=== PATIENT | female | born 1990 | race Caucasian/White ===

== ENCOUNTER 2021-03-20 15:58 | Outpatient (REF) | payer MEDICARE, MEDICAID, SELFPAY ==
[2021-03-20 18:15] LABS: COMMENT (LAB VIEW ONLY) 14.38 mg/dL; Microalb ug/mg Crea 46.6 ug/mg Cr
== END 2021-03-20 15:59 | disposition home or self-care (01) ==
LOC: NCHCN 15:58
PROVIDERS: Visit Provider Family Medicine
DX: E10.65 Type 1 diabetes mellitus with hyperglycemia (principal)
CPT/HCPCS: 82043; 82570

== ENCOUNTER 2021-04-24 12:11 | Emergency (ER) | payer MEDICAID, SELFPAY ==
[2021-04-24 12:14] VITALS: BP 107/76; PULSE 73; RESP 14; TEMP 36.8; O2SAT 98
--- NOTE | 2021-04-24 12:19 | ED.GENADUL_ITS ---
Discharge Plan Disposition Patient Disposition: HOME Condition: Stable Discharge Details Clinical Impression: Flank pain, Bladder wall thickening Primary Care Provider: None,None ED Provider: Shyann Jackman Home Meds and New Rx's Prescriptions: New ciprofloxacin HCl 250 mg tablet 250 mg PO BID 3 Days Qty: 6 RF: 0 Continued Humulin 70/30 U-100 Insulin 100 unit/mL (70-30) Suspension 45 unit SUBCUT BID RF: 0 insulin aspart U-100 [Novolog U-100 Insulin aspart] 100 unit/mL Solution subcut TID RF: 0 Discharge Instructions Instructions: Urinary Tract Infection in Women (ED), Flank Pain (ED) Additional Instructions: Your CT scan today noted evidence of bladder wall thickening with in combination with your blood in your urine and difficulty urinating, may be indicative of a urinary tract infection. Your urine sample today however did not show evidence of infection. A prescription for an antibiotic is being sent electronically to your pharmacy. You can start this and take as directed until finished. Since you declined additional attempts at obtaining blood work today, there could be a risk or disability due to missed or incomplete diagnoses. You can take the Toradol every 6 hours as needed and directed for pain. Do not take this in combination with ibuprofen as they are similar medication. Drink plenty of fluids and get plenty of rest. Follow-up with your primary care doctor in 1 week. You have been placed on urology follow-up list. Please call the urology office of Dr. Rosales to schedule a follow-up appointment for reevaluation Return to the emergency department with any worsening or new concerning symptoms such as fever, worsening pain, persistent vomiting or any other acute concerns. Referrals: Sebas Rosales MD [ [facility] STAFF PHYSICIAN] - Discharge Data Discharge Date/Time-TO BE ENTERED AT DEPARTURE: 04/24/21 14:41 Discharge Physician: Shyann Jackman Medical Decision Making 31-year-old female with a history of hidradenitis suppurativa, kidney stones, diabetes, atrial septal defect and hysterectomy presents for left flank pain x 3 days and hematuria. Patient appears uncomfortable. Her vitals are within normal limits. She has left CVA tenderness. She does not want an IV as she states in the past health care providers have been unsuccessful with IV placement due to her multiple areas of scar tissue in her extremities. She also states she does not want IV fluids as tomorrow she will have significant lower extremity swelling. It was discussed that the standard of care would be IV placement with IV fluids but she demonstrates capacity to make decisions and declines these treatments. Will obtain screening labs, urinalysis and CT renal colic. Will give a dose of oxycodone and Zofran. Lab staff unable to obtain blood due to poor peripheral access. Patient is refusing femoral lab draw. She still appears uncomfortable. Will give another dose of oxycodone p.o. and refer for imaging. Fingerstick glucose 121. Patient refused multiple attempts at lab draw and is continuing to refuse IV access. CT scan notes: IMPRESSION: 1. No evidence of nephrolithiasis or hydronephrosis. 2. Diffuse thickening of the wall of the urinary bladder. This may be due to underdistention, but an inflammatory/infectious process cannot be excluded. Please correlate clinically. 3. Results of this exam have been verbally communicated with provider. Patient was given an additional oxycodone dose here and had some relief of pain. Discussed with patient that there is no evidence of kidney stone to correlate with her pain. There is diffuse thickening of the urinary bladder but no evidence of UTI on urinalysis, however patient does admit to hematuria and difficulty with urination, so we will send a prescription for an antibiotic to her pharmacy. She had declined Toradol IV but is agreeable to Toradol p.o. Discussed that without lab work, we may be potentially missing diagnoses or inappropriately treating her symptoms and she is aware of the risk of or disability due to missed or incomplete diagnoses. She demonstrates capacity to make decisions. Patient placed on care management list to help arrange for a follow-up appointment with urology for reevaluation. Usual and customary return precautions given prior to discharge. Medical Records Medical records reviewed: Yes I reviewed the patient's medical records. Imaging Data Radiologic Study: Radiologist's impression: CT RENAL COLIC WO CLINICAL HISTORY: L flank pain, r/o ureteral stone. TECHNIQUE: Imaging Protocol: Axial computed tomography images with coronal and sagittal reformatted images were created and reviewed. COMPARISON: No exams were available for comparison FINDINGS: ABDOMEN: Lung Bases: Normal where visualized. Liver: Normal density. No measurable mass. Gallbladder and biliary tract: The patient is status post cholecystectomy. No significant biliary ductal dilatation. Pancreas: Normal density, no abnormal calcifications or inflammatory process. Spleen: Normal. Kidneys: Normal size, contour and axis.No radiodense stones or obstructive uropathy. No masses seen. Adrenal glands: No mass is seen. Lymph nodes: Within normal limits. Abdominal Aorta: Abdominal portion non-dilated. PELVIS: Bladder:The bladder is incompletely distended. There is diffuse thickening of the wall of the urinary bladder. This may be due to underdistention. An inflammatory/infectious process cannot be excluded. Bowel: No obstruction or bowel wall thickening. Appendix is unremarkable. Peritoneal cavity: No ascites, collection or mesenteric inflammatory response. No free air. Reproductive organs: Unremarkable as visualized. Bones: Within normal limits. Soft Tissues: Within normal limits. IMPRESSION: 1. No evidence of nephrolithiasis or hydronephrosis. 2. Diffuse thickening of the wall of the urinary bladder. This may be due to underdistention, but an inflammatory/infectious process cannot be excluded. Please correlate clinically. 3. Results of this exam have been verbally communicated with provider. HPI General Mode of arrival: ambulatory . Date/Time Provider Initiated Documentation: 04/24/21 12:13 . Limitations to Documentation: no limitations . Information obtained by: patient . HPI Narrative: Patient is a 31-year-old female with a history of diabetes, kidney stones, diabetes, hysterectomy presents for left flank pain for the past 3 days. She states the pain is constant and she has been vomiting occasionally due to the pain. She last took ibuprofen 4 to 5 hours ago without relief. She was seen at [facility] for symptoms and declined Toradol and was referred here for further evaluation. Patient states she has had multiple IV attempts in the past which have been unsuccessful due to her history of multiple extremity abscess excisions which have left scar tissue. She states she does not want an IV. Patient also now admits to hematuria. She denies any fever, abdominal pain, dysuria. Related Data Home Medications Medication Instructions Recorded Confirmed Humulin 70/30 U-100 Insulin 45 unit SUBCUT BID 04/24/21 04/24/21 ciprofloxacin HCl 250 mg PO BID 3 Days #6 tab 04/24/21 insulin aspart U-100 [Novolog sliding scale dose SUBCUT TID 04/24/21 U-100 Insulin aspart] Previous Rx's Medication Instructions Recorded ciprofloxacin HCl 250 mg PO BID 3 Days #6 tab 04/24/21 Allergies Allergy/AdvReac Type Severity Reaction Status Date / Time tramadol AdvReac Intermediate Diarrhea Unverified 04/24/21 12:19 Penicillins AdvReac Unverified 04/24/21 12:19 General Stated Complaint: FlankPain VIELKA: 3 Review of Systems All systems reviewed & are unremarkable except as noted in HPI and below Constitutional Constitutional: Reports as per HPI, Denies chills and Denies fever(s) Eyes Eyes: Denies blurry vision ENT Ears, Nose, Mouth, and Throat: Denies dizziness, Denies sore throat and Denies throat swelling Cardiovascular Cardiovascular: Denies chest pain and Denies dyspnea Respiratory Respiratory: Denies cough and Denies dyspnea Gastrointestinal Gastrointestinal: Denies abdominal pain, Denies diarrhea and Denies vomiting Genitourinary Genitourinary: Reports hematuria and Denies dysuria Musculoskeletal Musculoskeletal: Reports back pain and Denies numbness Integumentary/Breasts Skin/Breast: Denies lesions and Denies rash Neurologic Neurologic: Denies dizziness, Denies localized weakness and Denies numbness Allergic/Immunologic Allergic/Immunologic: Denies throat swelling [facility] Active Problem List (Updated 04/24/21 @ 14:27 by Shyann Jackman DO) Flank pain (Acute) Bladder wall thickening (Acute) Medical History (Updated 04/24/21 @ 14:27 by Shyann Jackman DO) Atrial septal defect Diabetes Hidradenitis suppurativa Kidney stones Surgical History (Updated 04/24/21 @ 12:36 by Shyann Jackman DO) Abscess of multiple sites history of multiple incision and drainage H/O section History of hysterectomy Social History Smoking/Tobacco Use Status: Current every day Smoking risk assessment performed?: Yes Alcohol Intake: never Drug use: Daily Substance use type: marijuana Do you feel safe at home: Yes Do you feel safe in your relationship?: Yes Exam Const General: cooperative and uncomfortable Nutritional Appearance: thin Orientation: alert, awake and oriented x3 HENMT Head: normal to inspection Face and sinus: normal facial exam Eyes General: appearance normal, both eyes and all related structures EOM: EOM intact bilaterally Neck Neck: normal visual inspection and No submandibular swelling Lymphatic: no lymphadenopathy noted Chest Chest: normal inspection of the chest and no tenderness Resp Effort & Inspection: normal respiratory effort and able to speak in complete sentences Auscultation: clear to auscultation bilaterally Cardio Rate: regular rate Rhythm: regular rhythm GI Inspection: normal to inspection Palpation: soft, not firm, not rigid and nontender Auscultation: normal bowel sounds Back/Spine/Pelvis Back: CVA tenderness (left side) Skin General skin exam: no rashes or lesions noted Neuro General: patient alert, patient awake and patient oriented x3 Cognition: normal cognition Speech: speech normal Motor: muscle tone normal throughout Sensory Exam: no sensory deficits noted Extrem General: normal to inspection, full ROM, capillary refill normal, no calf tenderness bilaterally and no edema Psych Appearance: grossly normal Mental Status: mental status grossly normal Speech and Movement: speech and movement normal Affect: normal affect Course Vital Signs Vital signs: Vital Signs Temperature 98.2 F 04/24/21 12:14 Pulse 73 04/24/21 12:14 Respiratory Rate 14 04/24/21 12:14 Blood Pressure 107/76 04/24/21 12:14 Pulse Oximetry 98 04/24/21 12:14 Temperature 98.2 F 04/24/21 12:14 Temperature Source Skin 04/24/21 12:14 Pulse 73 04/24/21 12:14 Respiratory Rate 14 04/24/21 12:14 Blood Pressure 107/76 04/24/21 12:14 Blood Pressure Position Sitting 04/24/21 12:14 Pulse Oximetry 98 04/24/21 12:14 Oxygen Delivery Method Room Air 04/24/21 12:14 Oxygen Flow Rate 0 04/24/21 12:14 Pain Level 10 04/24/21 12:14 Comment 04/24/21 12:14
--- NOTE | 2021-04-24 12:30 | DI.CT_ITS ---
Exam(s) CT RENAL COLIC WO EXAM: CT RENAL COLIC WO CLINICAL HISTORY: L flank pain, r/o ureteral stone. TECHNIQUE: Imaging Protocol: Axial computed tomography images with coronal and sagittal reformatted images were created and reviewed. COMPARISON: No exams were available for comparison FINDINGS: ABDOMEN: Lung Bases: Normal where visualized. Liver: Normal density. No measurable mass. Gallbladder and biliary tract: The patient is status post cholecystectomy. No significant biliary du ctal dilatation. Pancreas: Normal density, no abnormal calcifications or inflammatory process. Spleen: Normal. Kidneys: Normal size, contour and axis.No radiodense stones or obstructive uropathy. No masses seen. Adrenal glands: No mass is seen. Lymph nodes: Within normal limits. Abdominal Aorta: Abdominal portion non-dilated. PELVIS: Bladder:The bladder is incompletely distended. There is diffuse thickening of the wall of the urinar y bladder. This may be due to underdistention. An inflammatory/infectious process cannot be exclude d. Bowel: No obstruction or bowel wall thickening. Appendix is unremarkable. Peritoneal cavity: No ascites, collection or mesenteric inflammatory response. No free air. Reproductive organs: Unremarkable as visualized. Bones: Within normal limits. Soft Tissues: Within normal limits. IMPRESSION: 1. No evidence of nephrolithiasis or hydronephrosis. 2. Diffuse thickening of the wall of the urinary bladder. This may be due to underdistention, but an inflammatory/infectious process cannot be excluded. Please correlate clinically. 3. Results of this exam have been verbally communicated with provider. RADIATION DOSE DELIVERED: 434.32mGy.cm Total DLP DATA REPOSITORY: All CT scans at this facility are submitted to the National Radiology Data Registry (NRDR) Dose Index Registry (DIR) with the [employer] (A[employer]). RADIATION OPTIMIZATION: All CT scans at this facility use at least one of these dose optimization te chniques: automated exposure control; mA and/or kV adjustment per patient size (includes targeted exa ms where dose is matched to clinical indication); or iterative reconstruction.
[2021-04-24] MEDS: oxyCODONE 5 MG TAB PO ×2 (12:39→13:32)
[2021-04-24] MEDS: Ondansetron O.D.T. 4 MG TABEF PO (12:40)
[2021-04-24 12:53] LABS: Bilirubin Small (Negative); Blood Negative (Negative); Clarity Clear (Clear); Glucose 500 mg/dL (Negative); Ketones Trace mg/dL (Negative); Leukocyte Esterase Negative (Negative); Nitrite Negative (Negative); Specific Gravity >= 1.030 (1.005-1.025); Urobilinogen 0.2 EU/dL (Up TO 0.2); pH 5.5 (5-8)
[2021-04-24 13:00] LABS: Bacteria Rare HPF (Negative); C & S Indicated? No/Sq. Contamination; Casts 3-5 Hyaline LPF (Negative); Crystals Negative HPF (Negative); Epithelial Cells Moderate HPF (Negative); Mucus Moderate (Negative); RBC Negative HPF (0-2); WBC Negative HPF (0-5)
[2021-04-24] MEDS: Ketorolac 10 MG TAB PO (14:23)
[2021-04-24] MEDS: Ketorolac 10 MG TAB 40 MG PO (14:27)
--- NOTE | 2021-04-24 14:33 | NUR.NOTE ---
Nursing Note: Referral faxed to [facility] Urology for flank pain, bladder wall thickening within 2 weeks.Merna Santiago
== END 2021-04-24 14:41 | disposition home or self-care (01) ==
PROVIDERS: Emergency Provider Physician Assistant
DX: R10.9 Unspecified abdominal pain (principal); N32.89 Other specified disorders of bladder; Z53.29 Procedure and treatment not carried out because of patient's decision for other reasons; E11.9 Type 2 diabetes mellitus without complications
CPT/HCPCS: 36416; 80053; 82962; 83690; 99284; 74176; 81003; 81015; 85025; 99283

== ENCOUNTER 2021-05-01 17:01 | Emergency (ER) | payer MEDICAID, SELFPAY ==
[2021-05-01 17:23] VITALS: BP 110/76; PULSE 73; RESP 14; TEMP 37.2; O2SAT 97
--- NOTE | 2021-05-01 17:38 | W.ED.GENAD ---
Discharge Plan Disposition Patient Disposition: HOME Condition: Stable Discharge Details Clinical Impression: Abdominal pain, Hyperglycemia Primary Care Provider: None,None ED Provider: Oni Elizalde Home Meds and New Rx's Prescriptions: Continued Humulin 70/30 U-100 Insulin 100 unit/mL (70-30) Suspension 45 unit SUBCUT BID RF: 0 insulin aspart U-100 [Novolog U-100 Insulin aspart] 100 unit/mL Solution subcut TID RF: 0 Discharge Instructions Instructions: Abdominal Pain (ED), Diabetic Hyperglycemia (ED) Additional Instructions: At this time your laboratory values reveal hyperglycemia, your glucose is 457, please watch this carefully and continue taking your insulin as directed. At this time your urinalysis is still pending, I cannot speak to whether you have any blood in your urine or potential infection. I have strongly recommended that you let me contact anesthesia to obtain IV access, give you IV fluids and medication and obtain a CT of your abdomen and pelvis with IV contrast which is different than your recent visit on April 25. You have declined all of this. Because of this, I do not have a clear source of your discomfort this evening which means you could continue to deteriorate eventually leading to long-term impairment, disability, , etc. Please watch for new or worsening symptoms and return to the ER for any concerns. Otherwise contact your primary care provider tomorrow to discuss your ongoing abdominal pain and need for outpatient reevaluation. Discharge Data Discharge Date/Time-TO BE ENTERED AT DEPARTURE: 05/01/21 19:21 Medical Decision Making 31-year-old female, past medical history of diabetes, hysterectomy, cholecystectomy, presenting to the ER for 7-day history of abdominal pain that wraps around her right flank into her back. She was seen here on April 25, refused any additional attempts at labs or IV and subsequently was discharged. Today she appears well, nontoxic, hemodynamically stable. Diffuse abdominal discomfort but certainly nonsurgical. Patient reports history of cholecystectomy and hysterectomy. She states this feels different than her previous kidney stone. At her most recent visit she did have a CT without contrast, substantial bladder thickening, placed on antibiotics. She denies any dysuria whatsoever. Patient is asking for oral pain medication. Is hesitant to allow a blood draw attempt or IV attempt. I explained to her that with her ongoing discomfort my concern is to simply blindly treat her discomfort without any obvious etiology. I would like to obtain IV access, give IV fluid given her nausea, vomiting, diarrhea, obtain routine laboratory values and potentially a CT of her abdomen pelvis with IV contrast for additional information. Patient states that she does not need IV fluids. She is willing to allow an IV attempt only with ultrasound. Straight stick blood draw obtained, IV attempted but unsuccessful. Patient is requesting medication. Patient offered oral Toradol and Tylenol. Patient declines both of these medications. Patient will allow an ultrasound attempt, another attempt was made with ultrasound and unsuccessful. We discussed calling an anesthesia to see if they could obtain act but patient refuses this. She would like to wait for her blood work to come back before she makes any further decisions. Is requesting pain medication once again. Discussed GI cocktail and Bentyl, patient once again refuses these medications. No vomiting or episode of diarrhea while observed here in the ER. Laboratory values reveal a white blood cell count of 5.00 hemoglobin of 5.29 hematocrit 47.5 platelet count 132. Sodium 136 potassium 3.6 chloride 97 carbon dioxide 33.3 anion gap 5.7 creatinine 0.7 with a GFR greater than 60. Glucose 457. Urinalysis without evidence of infection. We once again discussed the limited work-up given lack of IV access and CT imaging. We discussed her glucose. No elevated anion gap, highly unlikely DKA. Patient states that she can check her levels at home and can take her sliding scale insulin as she needs to. Does not want any insulin here now patient states if I am not willing to give her additional pain medication and she would like to be discharged and I'll just got to another [facility]. I explained to the patient that her hyperglycemia needs to be treated, she would benefit from IV hydration, and I do believe that if her symptoms are persistent with obtaining advanced imaging with IV contrast may also give additional information to her symptoms. She refuses all of this and is requesting discharge. Subsequently she requests her oral dose of Toradol that was offered earlier. She is requesting discharge now, she is already called for a ride home. She does understand that her work-up here in the ER was limited, not complete, and therefore I cannot safely say that her symptoms will not worsen, change, or evolve, leading to permanent disability or . Strict discharge and return precautions were provided This documentation was generated using [employer] system, please disregard any oddities of phrase or misspellings. Toxicology is positive for methadone and THC. Medical Records Medical records reviewed: Yes I reviewed the patient's medical records. Lab Data Lab results reviewed: Yes I reviewed the patient's lab results. Labs: Laboratory Tests Range/Units 05/01/21 05/01/21 05/01/21 17:42 17:42 18:45 WBC (4.4-10.8) 10^3/uL 5.00 RBC (3.93-5.22) 10^6/uL 5.29 H Hgb (11.2-15.7) g/dL 15.7 Hct (36.0-46.0) % 47.5 H MCV (80-95) fL 89.8 MCH (27.0-33.0) pg 29.7 MCHC (32.0-36.0) % 33.1 RDW (11.7-14.6) % 12.1 Plt Count (130-400) 10^3/uL 132 MPV (8.0-11.0) fL 11.8 H Immature Gran % 0.4 Neutrophils % 60.4 Lymphocytes % 32.2 Monocytes % 5.8 Eosinophils % 0.6 Basophils % 0.6 Nucleated RBC % % 0 Absolute Neutrophils (1.2-6.7) 10^3/uL 3.02 Absolute Lymphocytes (1.2-3.4) 10^3/uL 1.61 Absolute Monocytes (0.1-0.8) 10^3/uL 0.29 Absolute Eosinophils (0.0-0.7) 10^3/uL 0.03 Absolute Basophils (0.0-0.2) 10^3/uL 0.03 RBC Morphology Normal Sodium (136-145) mmol/L 136 Potassium (3.5-5.1) mmol/L 3.6 Chloride (98-107) mmol/L 97 L Carbon Dioxide (21.0-32.0) mmol/L 33.3 H Anion Gap (3-11) mmol/L 5.7 BUN (7-18) mg/dL 8 Creatinine (0.55-1.02) mg/dL 0.7 Estimated GFR/1.73 m2 (mL/min/1.73m2) >= 60.00 Glucose (74-106) mg/dL 457 H Calcium (8.5-10.1) mg/dL 9.3 Total Bilirubin (0.2-1.0) mg/dL 1.1 H AST (15-37) U/L 26 ALT (14-59) U/L 29 Alkaline Phosphatase (46-116) U/L 90 Total Protein (6.4-8.2) g/dL 8.2 Albumin (3.4-5.0) g/dL 3.8 Lipase (73-393) U/L 28 Urine Color (Yellow) Yellow Urine Clarity (Clear) Clear Urine pH (5-8) 6.0 Ur Specific Turrell (1.005-1.025) 1.010 Urine Protein (Negative) mg/dL Negative Urine Ketones (Negative) mg/dL 15 H Urine Blood (Negative) Negative Urine Nitrite (Negative) Negative Urine Bilirubin (Negative) Negative Urine Urobilinogen (Up TO 0.2) EU/dL 0.2 Ur Leukocyte Esterase (Negative) Negative Urine Glucose (Negative) mg/dL >=1000 H Urine Opiates Screen (Negative) Urine Methadone Screen (Negative) Ur Barbiturates Screen (Negative) Ur Tricyclics Screen (Negative) Ur Amphetamines Screen (Negative) U Benzodiazepines Scrn (Negative) Urine Cocaine Screen (Negative) Ur THC Screen (Negative) Range/Units 05/01/21 18:46 WBC (4.4-10.8) 10^3/uL RBC (3.93-5.22) 10^6/uL Hgb (11.2-15.7) g/dL Hct (36.0-46.0) % MCV (80-95) fL MCH (27.0-33.0) pg MCHC (32.0-36.0) % RDW (11.7-14.6) % Plt Count (130-400) 10^3/uL MPV (8.0-11.0) fL Immature Gran % Neutrophils % Lymphocytes % Monocytes % Eosinophils % Basophils % Nucleated RBC % % Absolute Neutrophils (1.2-6.7) 10^3/uL Absolute Lymphocytes (1.2-3.4) 10^3/uL Absolute Monocytes (0.1-0.8) 10^3/uL Absolute Eosinophils (0.0-0.7) 10^3/uL Absolute Basophils (0.0-0.2) 10^3/uL RBC Morphology Sodium (136-145) mmol/L Potassium (3.5-5.1) mmol/L Chloride (98-107) mmol/L Carbon Dioxide (21.0-32.0) mmol/L Anion Gap (3-11) mmol/L BUN (7-18) mg/dL Creatinine (0.55-1.02) mg/dL Estimated GFR/1.73 m2 (mL/min/1.73m2) Glucose (74-106) mg/dL Calcium (8.5-10.1) mg/dL Total Bilirubin (0.2-1.0) mg/dL AST (15-37) U/L ALT (14-59) U/L Alkaline Phosphatase (46-116) U/L Total Protein (6.4-8.2) g/dL Albumin (3.4-5.0) g/dL Lipase (73-393) U/L Urine Color (Yellow) Urine Clarity (Clear) Urine pH (5-8) Ur Specific Turrell (1.005-1.025) Urine Protein (Negative) mg/dL Urine Ketones (Negative) mg/dL Urine Blood (Negative) Urine Nitrite (Negative) Urine Bilirubin (Negative) Urine Urobilinogen (Up TO 0.2) EU/dL Ur Leukocyte Esterase (Negative) Urine Glucose (Negative) mg/dL Urine Opiates Screen (Negative) Negative Urine Methadone Screen (Negative) Positive A Ur Barbiturates Screen (Negative) Negative Ur Tricyclics Screen (Negative) Negative Ur Amphetamines Screen (Negative) Negative U Benzodiazepines Scrn (Negative) Negative Urine Cocaine Screen (Negative) Negative Ur THC Screen (Negative) Positive A HPI General Mode of arrival: ambulatory. Date/Time Provider Initiated Documentation: 05/01/21 17:03. Limitations to Documentation: no limitations. Information obtained by: patient. HPI Narrative: This is a 31-year-old female, reports past medical history of insulin dependent diabetes, renal stone, hysterectomy, cholecystectomy, presenting to the ER today reporting generalized abdominal pain worse in the middle that wraps around her right flank into her back. She states that nothing makes this pain worse or better. Reports it is constant but moderate to severe. She tells me she was seen in the ER on April 25 for the same thing, subsequently discharged, has not made an appointment with urology like instructed. Patient denies any alcohol use or drug use. Patient states that over the last several days she has developed generalized weakness, nausea, vomiting, and now just over the past day or so some diarrhea. She denies taking any medications for the symptoms. She has not contacted her primary care provider since this began on April 25. Patient states that this pain feels different than her previous kidney stones, never had pain like this before. She denies recent travel or sick contacts. Denies recent illness or trauma. Reports the pain is sharp and achy in nature. She denies fever, headache, chest pain, shortness of breath, cough, dysuria, hematuria, vaginal bleeding or discharge, skin rash. Related Data Home Medications Medication Instructions Recorded Confirmed Humulin 70/30 U-100 Insulin 45 unit SUBCUT BID 04/24/21 05/01/21 insulin aspart U-100 [Novolog sliding scale dose SUBCUT TID 04/24/21 U-100 Insulin aspart] Allergies Allergy/AdvReac Type Severity Reaction Status Date / Time tramadol AdvReac Intermediate Diarrhea Unverified 05/01/21 17:25 Penicillins AdvReac Unverified 05/01/21 17:25 General Stated Complaint: Abd Prob VIELKA: 2 Review of Systems Constitutional Constitutional: Denies fever(s) and Denies headache(s) ENT Ears, Nose, Mouth, and Throat: Denies headache(s) and Denies neck pain Cardiovascular Cardiovascular: Denies chest pain and Denies dyspnea Respiratory Respiratory: Denies cough and Denies dyspnea Gastrointestinal Gastrointestinal: Reports abdominal pain, Reports diarrhea, Reports nausea and Reports vomiting Genitourinary Genitourinary: Denies abnormal vaginal bleeding and Denies vaginal discharge Musculoskeletal Musculoskeletal: Reports back pain and Denies neck pain Integumentary/Breasts Skin/Breast: Denies rash Neurologic Neurologic: Denies headache(s) [facility] Active Problem List Flank pain (Acute) Bladder wall thickening (Acute) Abdominal pain (Acute) Hyperglycemia (Acute) Medical History Atrial septal defect Diabetes Hidradenitis suppurativa Kidney stones Surgical History Abscess of multiple sites history of multiple incision and drainage H/O section History of hysterectomy Social History Smoking/Tobacco Use Status: Current every day Smoking risk assessment performed?: Yes Alcohol Intake: never Drug use: Daily Substance use type: marijuana Do you feel safe at home: Yes Do you feel safe in your relationship?: Yes Exam Const General: cooperative, healthy appearing, comfortable and no acute distress Orientation: alert and awake [facility] Head: normal to inspection, normocephalic and atraumatic Face and sinus: normal facial exam Mouth: moist mucous membranes Eyes General: appearance normal, both eyes and all related structures Conjunctivae: conjunctivae normal Neck Neck: normal visual inspection, trachea midline and supple Resp Effort & Inspection: normal respiratory effort and able to speak in complete sentences Auscultation: clear to auscultation bilaterally Cardio Rate: regular rate Rhythm: regular rhythm GI Inspection: normal to inspection Palpation: soft, not firm, no guarding, no pulsatile masses and tender (Diffuse, mild) not at McBurney's point, Vail's sign negative and with no rebound tenderness Auscultation: normal bowel sounds Back/Spine/Pelvis Back: no CVA tenderness and No back tenderness Skin General skin exam: no rashes or lesions noted Neuro General: patient alert, patient awake, moves all extremities and no focal motor deficits Cognition: normal cognition Speech: speech normal Gait: normal gait Sensory Exam: no sensory deficits noted Extrem General: normal to inspection and full ROM Psych Appearance: grossly normal Mental Status: mental status grossly normal Course Vital Signs Vital signs: Vital Signs Temperature 37.2 C 05/01/21 17:23 Pulse 73 05/01/21 17:23 Respiratory Rate 14 05/01/21 17:23 Blood Pressure 110/76 05/01/21 17:23 Pulse Oximetry 97 05/01/21 17:23 Temperature 37.2 C 05/01/21 17:23 Temperature Source Skin 05/01/21 17:23 Pulse 73 05/01/21 17:23 Respiratory Rate 14 05/01/21 17:23 Respiratory Effort Non-Labored 05/01/21 17:26 Blood Pressure 110/76 05/01/21 17:23 Blood Pressure Position Supine 05/01/21 17:23 Pulse Oximetry 97 05/01/21 17:23 Oxygen Delivery Method Room Air 05/01/21 17:23 Oxygen Flow Rate 0 05/01/21 17:23 Pain Level 10 05/01/21 17:26
[2021-05-01 18:25] LABS: Abs Immature Grans 0.02 10^3/uL (0.0-0.06); Absolute Basophil Count 0.03 10^3/uL (0.0-0.2); Absolute Eosinophil Count 0.03 10^3/uL (0.0-0.7); Absolute Lymphocyte Count 1.61 10^3/uL (1.2-3.4); Absolute Monocyte Count 0.29 10^3/uL (0.1-0.8); Absolute Neutrophil Count 3.02 10^3/uL (1.2-6.7); Basophils % 0.6; Eosinophils % 0.6; HCT 47.5 % (36.0-46.0); HGB 15.7 g/dL (11.2-15.7); Immature Grans % 0.4; Lymphocytes % 32.2; MCH 29.7 pg (27.0-33.0); MCHC 33.1 % (32.0-36.0); MCV 89.8 fL (80-95); MPV 11.8 fL (8.0-11.0); Monocytes % 5.8; Neutrophils % 60.4; Nucleated RBC 0 %; Platelet Count 132 10^3/uL (130-400); RBC 5.29 10^6/uL (3.93-5.22); RDW 12.1 % (11.7-14.6); RDW-SD 39.9 fL
[2021-05-01 18:40] LABS: ALT 29 U/L (14-59); AST 26 U/L (15-37); Albumin 3.8 g/dL (3.4-5.0); Alkaline Phosphatase 90 U/L (46-116); Anion Gap 5.7 mmol/L (3-11); BUN 8 mg/dL (7-18); Bilirubin, Total 1.1 mg/dL (0.2-1.0); CO2 33.3 mmol/L (21.0-32.0); CREATININE 0.7 mg/dL (0.55-1.02); Calcium 9.3 mg/dL (8.5-10.1); Chloride 97 mmol/L (98-107); Glucose 457 mg/dL (74-106); Lipase 28 U/L (73-393); Potassium 3.6 mmol/L (3.5-5.1); Sodium 136 mmol/L (136-145); Total Protein 8.2 g/dL (6.4-8.2)
[2021-05-01 18:52] LABS: Diff Comment PLT Morph Reviewed; RBC Morphology Normal
[2021-05-01 19:03] LABS: Bilirubin Negative (Negative); Blood Negative (Negative); Clarity Clear (Clear); Glucose >=1000 mg/dL (Negative); Ketones 15 mg/dL (Negative); Leukocyte Esterase Negative (Negative); Nitrite Negative (Negative); Urobilinogen 0.2 EU/dL (Up TO 0.2)
[2021-05-01] MEDS: Ketorolac 10 MG TAB PO (19:13)
[2021-05-01 19:14] VITALS: BP 106/77; PULSE 68; O2SAT 100
[2021-05-01 19:16] LABS: *AMPHETAMINES SCREEN URINE Negative (Negative); *BARBITURATES SCREEN URINE Negative (Negative); *BENZODIAZEPINES SCREEN URINE Negative (Negative); Cannabinoids THC Positive (Negative); Cocaine Screen,Urine Negative (Negative); METHADONE URINE SCREEN Positive (Negative); OPIATES URINE SCREEN Negative (Negative)
[2021-05-01 19:17] LABS: Tricyclic Antidepressants Negative (Negative)
== END 2021-05-01 19:21 | disposition home or self-care (01) ==
PROVIDERS: Emergency Provider Physician Assistant
DX: R10.9 Unspecified abdominal pain (principal); E11.65 Type 2 diabetes mellitus with hyperglycemia
CPT/HCPCS: 36415; 80053; 80307; 83690; 99283; 81003; 85025; 99282

== ENCOUNTER 2021-10-08 19:06 | Inpatient (IN) | payer MEDICAID, SELFPAY ==
[2021-10-08] VITALS (77 sets, daily range): BP systolic 106–116; BP diastolic 72–79; PULSE 71–85; RESP 14–22; TEMP 36.7–37.3; O2SAT 97–100
--- NOTE | 2021-10-08 19:25 | ED.GENADUL_ITS ---
Discharge Plan Disposition Patient Disposition: [facility] INPATIENT Condition: Improving Discharge Details Chief Complaint: GenMedical Clinical Impression: DKA (diabetic ketoacidosis), Acute opioid withdrawal, Acute dehydration Primary Care Provider: None,None ED Provider: Victor Manuel Ayala Home Meds and New Rx's Prescriptions: No Action Humulin 70/30 U-100 Insulin 100 unit/mL (70-30) Suspension 45 unit SUBCUT BID insulin aspart U-100 [Novolog U-100 Insulin aspart] 100 unit/mL Solution subcut TID Medical Decision Making 31-year-old female history of diabetes, opiate abuse, currently enrolled in the methadone program, endorses missing her last 3 doses of methadone as her sister recently , also endorsed taking her insulin today and not eating much, generalized fatigue nausea vomiting abdominal pain diarrhea, appears mild to moderately uncomfortable, frail cachectic dry appearing, no active vomiting abdomen soft nontender nondistended, alert oriented, fingerstick greater than 400, concern for methadone withdrawal versus DKA versus dehydration versus lecture abnormality versus gastroenteritis versus viral syndrome. Patient endorses that she takes 90 mg of methadone per day. Will dose 30 mg as I am unable to verify this dose. Will provide fluids antiemetics, will assess labs VBG, flu and COVID swab, close reassessment disposition pending results and reassessment 20: 43 evidence of DKA. Acidosis anion gap ketones in the urine hyperglycemia, fluids and maintenance fluids initiated, started on insulin drip, methadone 30 mg given patient resting much more comfortably. Will be admitted to the ICU for continued insulin therapy hydration close monitoring of metabolic status. HPI General Date/Time Provider Initiated Documentation: 10/08/21 19:07 . HPI Narrative: 31-year-old female history of opiate abuse, on methadone program, presents with generalized fatigue and nausea vomiting and diarrhea as well as body aches today, endorses missing her last several days of methadone as her sister , also endorses taking her insulin today and not eating much. Related Data Home Medications Medication Instructions Recorded Confirmed insulin aspart U-100 100 unit/mL sliding scale dose subcut TID 04/24/21 subcutaneous solution (Novolog U-100 Insulin aspart) insulin human U-100 NPH-regulr 45 unit subcut BID 04/24/21 05/01/21 70-30 mix 100 unit/mL subcutaneous susp (Humulin 70/30 U-100 Insulin) Allergies Allergy/AdvReac Type Severity Reaction Status Date / Time tramadol AdvReac Intermediate Diarrhea Unverified 05/01/21 17:25 Penicillins AdvReac Unverified 05/01/21 17:25 General Stated Complaint: GenMedical VIELKA: 2 Review of Systems Narrative: Review of Systems Constitutional: Fatigue Eyes: negative ENT: negative Cardiovascular: negative Respiratory: negative Gastrointestinal: Nausea vomiting diarrhea : negative Musculoskeletal: negative Skin: negative Neurologic: negative Psych: negative PFSH All Active Problems (Updated 10/08/21 @ 20:44 by Victor Manuel Ayala MD) Flank pain (Acute) Bladder wall thickening (Acute) Abdominal pain (Acute) Hyperglycemia (Acute) DKA (diabetic ketoacidosis) (Acute) Acute opioid withdrawal (Acute) Acute dehydration (Acute) Active Problem List Flank pain (Acute) Bladder wall thickening (Acute) Abdominal pain (Acute) Hyperglycemia (Acute) Medical History Atrial septal defect Diabetes Hidradenitis suppurativa Kidney stones Surgical History Abscess of multiple sites history of multiple incision and drainage H/O section History of hysterectomy Social History Smoking/Tobacco Use Status: Current every day Smoking risk assessment performed?: Yes Alcohol Intake: never Drug use: Daily Substance use type: marijuana and opiates Do you feel safe at home: Yes Do you feel safe in your relationship?: Yes Exam Narrative Exam Narrative: Physical Examination General: Fatigue, moderately uncomfortable appears cachectic and frail HEENT: normocephalic, atraumatic; PERRL, EOM intact, conjunctiva normal; no nasal discharge; dry oral mucosa Neck: supple, trachea midline; full ROM Chest: normal to inspection Respiratory: normal respiratory effort, speaking in full sentences, clear to auscultation, no wheezing, rales or rhonchi Cardiac: regular rate, regular rhythm, S1S2 intact, no murmurs rubs or gallops GI: abdomen soft, non-tender, non-distended; no palpable mass or hepatosplenomegaly Skin: no lesions, rashes or trauma appreciated Neuro: AAOx3, normal speech, moving all extremities Psych: Appropriate mood and affect Course Vital Signs Vital signs: Vital Signs Temperature 36.7 C 10/08/21 19:08 Pulse 71 10/08/21 19:08 Respiratory Rate 14 10/08/21 19:08 Blood Pressure 109/73 10/08/21 19:08 Pulse Oximetry 100 10/08/21 19:08 Temperature 36.7 C 10/08/21 19:08 Temperature Source Temporal Artery Scan 10/08/21 19:08 Pulse 71 10/08/21 19:08 Respiratory Rate 14 10/08/21 19:13 Respiratory Effort Non-Labored 10/08/21 19:13 Respiratory Depth Shallow 10/08/21 19:13 Respiratory Pattern Normal 10/08/21 19:13 Blood Pressure 109/73 10/08/21 19:08 Blood Pressure Position Supine 10/08/21 19:08 Pulse Oximetry 100 10/08/21 19:08 Oxygen Delivery Method Room Air 10/08/21 19:08 Oxygen Flow Rate 0 10/08/21 19:08 Pain Level 10 10/08/21 19:08
[2021-10-08 19:34] LABS: HCO3 (Venous) 7 mmol/L (23-28); O2 Sat (Venous) 62 %; TCO2 (Venous) 7 mmol/L (24-29); pCO2 (Venous) 23 mmHg (41-51); pO2 (Venous) 33 mmHg
[2021-10-08 19:35] LABS: Absolute Basophil Count 0.14 10^3/uL (0.0-0.2); Absolute Eosinophil Count 0.01 10^3/uL (0.0-0.7); Absolute Lymphocyte Count 1.83 10^3/uL (1.2-3.4); Absolute Monocyte Count 0.21 10^3/uL (0.1-0.8); Absolute Neutrophil Count 8.39 10^3/uL (1.2-6.7); Basophils % 1.3; Eosinophils % 0.1; HCT 47.8 % (36.0-46.0); HGB 15.1 g/dL (11.2-15.7); Immature Grans % 3.6; Lymphocytes % 16.7; MCH 28.9 pg (27.0-33.0); MCHC 31.6 % (32.0-36.0); MCV 92 fL (80-95); MPV 10.1 fL (8.0-11.0); Monocytes % 1.9; Neutrophils % 76.4; Platelet Count 343 10^3/uL (130-400); RBC 5.22 10^6/uL (3.93-5.22); RDW 12.5 % (11.7-14.6); WBC 10.98 10^3/uL (4.4-10.8)
[2021-10-08 19:36] LABS: pH (Venous) 7.09 (7.31-7.41)
[2021-10-08] MEDS: Ondansetron 4 MG/2 ML VIAL IVP (19:44)
[2021-10-08] MEDS: Normal Saline 1,000 ML 1000 ML IV (19:44)
[2021-10-08 19:50] LABS: ALT 35 U/L (14-59); AST 15 U/L (15-37); Albumin 3.6 g/dL (3.4-5.0); Alkaline Phosphatase 138 U/L (46-116); Anion Gap 25.4 mmol/L (3-11); BUN 9 mg/dL (7-18); Bilirubin, Total 0.8 mg/dL (0.2-1.0); CO2 7.6 mmol/L (21.0-32.0); CREATININE 0.9 mg/dL (0.55-1.02); Calcium 8.7 mg/dL (8.5-10.1); Chloride 99 mmol/L (98-107); Glucose 433 mg/dL (74-106); Potassium 4.3 mmol/L (3.5-5.1); Sodium 132 mmol/L (136-145); Total Protein 8.8 g/dL (6.4-8.2)
--- NOTE | 2021-10-08 19:57 | NUR.NOTE ---
pt refused the covid flu testNursing Note:
[2021-10-08] MEDS: Methadone 10 MG TAB 30 MG PO (20:01)
[2021-10-08 20:24] LABS: Bilirubin Negative (Negative); Blood Trace-lysed (Negative); Clarity Clear (Clear); Glucose 500 mg/dL (Negative); Ketones >=160 mg/dL (Negative); Leukocyte Esterase Negative (Negative); Nitrite Negative (Negative); Specific Gravity >= 1.030 (1.005-1.025); Urobilinogen 0.2 EU/dL (Up TO 0.2); pH 5.5 (5-8)
[2021-10-08 20:32] LABS: Bacteria Moderate HPF (Negative); C & S Indicated? Yes; Crystals Negative HPF (Negative); Epithelial Cells Few HPF (Negative); Mucus Negative (Negative); RBC 0-2 HPF (0-2)
--- NOTE | 2021-10-08 20:32 | NUR.NOTE ---
contacted patients mother.Nursing Note:
--- NOTE | 2021-10-08 22:11 | NUR.NOTE ---
Report given to Sofi RN, ICU Nursing Note:
[2021-10-08] MEDS: INSULIN REGULAR IN 0.9 % NACL 100 UNIT/100 ML BAG 5.7 UNIT IV (23:07)
--- NOTE | 2021-10-08 23:34 | W.PM.HP.N ---
Date of service: 10/08/21 Time of Service: 22:35 Assessment and Plan Assessment and plan (1) DKA (diabetic ketoacidosis): Status: Resolved Assessment and plan: DKA protocol; insulin drip initiated. Lantus 15 units SQ administered. She c/o pain at the IV site and she stated it had infiltrated. It apparently had not infiltrated; could be flushed. Becuase of her c/o discomfort another IV initiated and she complained that it had infiltrated and was painful. She would not allow nursing to flush it. While the insulin drip was not running, her glucose reading was 245. While insulin drip not running, she was given 5 units insulin. She will need glucose in her system so nursing is encouraging juice or soda. Zofran given for nausea. 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 (2) Acute opioid withdrawal: Status: Acute Assessment and plan: Will need to verify her methadone dose with her provider. She appeared to be in withdrawal still after the 30 methadone given in the ED. She endorses taking 90 a day. Though this will need verification, given her clinical signs/sxs of withdrawal, she was given another 60 of methadone. (3) History of opioid abuse: Status: Acute Assessment and plan: See above. History of Present Illness History of Present Illness Chief Complaint: Nausea, vomiting, weakness Narrative: This is a 31 yo female with a PMH of DM1, opiate abuse currently on methadone. She presented c/o weakness, N/V. She endorsed missing her last 3 doses of methadone d/t her sisters . She stated she did take her insulin on the day of admission, but hasn't eaten much. In the ED her glucose fingerstick was 400. She c/o generalized pain/aches. No F/C. + nausea/abd pain. Lab showed a WBC count of 10.98. VBG pH of 7.09. Na 132. K 4.3. CO2 7.6 with an anion gap of 25.4. BUN 9. Creatinine 0.9. LFTs and bilirubin normal. Urine was concentrated, +ketones, WBC 10-20, Mod bacteria. Glucose 500. She was given a 1000 ml IV NS bolus and an insulin drip initiated. A 20 meq IV dose of K also administered. She was given methadone 30mg po. She stated her dose is 90, but this has not been verified. Review of Systems All systems reviewed & are unremarkable except as noted in HPI and below PFSH All Active Problems (Updated 11/12/21 @ 00:04 by KEYUR NICHOLE) Type 1 diabetes mellitus (Acute) Depression (Chronic) History of opioid abuse (Acute) Flank pain (Acute) Bladder wall thickening (Acute) Abdominal pain (Acute) Hyperglycemia (Acute) Acute opioid withdrawal (Acute) Medical History Atrial septal defect Diabetes Hidradenitis suppurativa Kidney stones Surgical History Abscess of multiple sites history of multiple incision and drainage H/O section History of hysterectomy Social History Smoking/Tobacco Use Status: Current every day Smoking risk assessment performed?: Yes Alcohol Intake: never Drug use: Current Sobriety Details: methadone Do you feel safe at home: Yes Do you feel safe in your relationship?: Yes Meds Allergies and Home Medications Allergies Allergy/AdvReac Type Severity Reaction Status Date / Time tramadol AdvReac Intermediate Diarrhea Unverified 10/13/21 10:44 Penicillins AdvReac Unverified 10/13/21 10:44 Home Medications Medication Instructions Recorded Confirmed Type flash glucose sensor (FreeStyle #1 ea 10/11/21 Rx Kassi 14 Day Sensor kit) insulin aspart U-100 100 unit/mL 5 unit (0.05 mL) subcut AC #15 mL 10/11/21 10/13/21 Rx (3 mL) subcutaneous pen (Novolog Flexpen U-100 Insulin aspart) insulin glargine 100 unit/mL (3 20 unit (0.2 mL) subcut BID #15 mL 10/11/21 10/13/21 Rx mL) subcutaneous pen methadone 10 mg/mL oral 60 mg (6 mL) PO DAILY #0 mL 10/11/21 10/13/21 Rx concentrate (Methadone Intensol) metoclopramide HCl 10 mg tablet 10 mg PO QAC #21 tabs 10/11/21 10/13/21 Rx (Reglan) pantoprazole 40 mg tablet,delayed 40 mg PO DAILY@0730 #30 tabs 10/11/21 10/13/21 Rx release paroxetine HCl 10 mg tablet 10 mg PO DAILY #30 tabs 10/11/21 10/13/21 Rx trimethobenzamide 300 mg capsule 300 mg PO Q8H PRN #30 caps 10/11/21 10/13/21 Rx Exam Narrative Exam Narrative: Lying on her right side, cachectic appearing. Const General: frail appearing, ill appearing and other (uncomfortable and restless) Nutritional Appearance: underweight Orientation: awake, oriented to person and oriented to place [place] Head: atraumatic Ears: hearing grossly normal bilaterally Teeth and gingiva: poor dentition (broken and missing teeth. Caries noted. ) Eyes General: appearance normal, both eyes and all related structures Sclera: sclerae normal Resp Effort & Inspection: normal respiratory effort and able to speak in complete sentences Auscultation: clear to auscultation bilaterally Cardio Rate: regular rate Rhythm: regular rhythm Heart Sounds: S1 normal and S2 normal GI Palpation: soft and nontender Skin General skin exam: no rashes or lesions noted Extrem General: no pedal edema and no calf tenderness Results Labs Result diagrams: 10/09/21 06:44 10/10/21 05:50 Labs: Laboratory Results - last 24 hr 10/08/21 10/08/21 10/08/21 19:20 19:20 19:20 WBC 10.98 H RBC 5.22 Hgb 15.1 Hct 47.8 H MCV 92 MCH 28.9 MCHC 31.6 L RDW 12.5 Plt Count 343 MPV 10.1 Immature Gran % 3.6 Neutrophils % 76.4 Lymphocytes % 16.7 Monocytes % 1.9 Eosinophils % 0.1 Basophils % 1.3 Nucleated RBC % 0.0 Absolute Neutrophils 8.39 H Absolute Lymphocytes 1.83 Absolute Monocytes 0.21 Absolute Eosinophils 0.01 Absolute Basophils 0.14 VBG pH 7.09 L* VBG pCO2 23 L VBG pO2 33 VBG HCO3 7 L VBG Total CO2 7 L VBG O2 Saturation 62 VBG Base Excess < -15 L Sodium 132 L Potassium 4.3 Chloride 99 Carbon Dioxide 7.6 L Anion Gap 25.4 H BUN 9 Creatinine 0.9 Estimated GFR/1.73 m2 >= 60.00 Glucose 433 H Calcium 8.7 Total Bilirubin 0.8 AST 15 ALT 35 Alkaline Phosphatase 138 H Total Protein 8.8 H Albumin 3.6 Urine Color Urine Clarity Urine pH Ur Specific [place] Urine Protein Urine Ketones Urine Blood Urine Nitrite Urine Bilirubin Urine Urobilinogen Ur Leukocyte Esterase Urine RBC Urine WBC Ur Epithelial Cells Urine Crystals Urine Bacteria Urine Mucus Ur Culture Indicated? Urine Glucose 10/08/21 10/08/21 19:50 22:35 WBC RBC Hgb Hct MCV MCH MCHC RDW Plt Count MPV Immature Gran % Neutrophils % Lymphocytes % Monocytes % Eosinophils % Basophils % Nucleated RBC % Absolute Neutrophils Absolute Lymphocytes Absolute Monocytes Absolute Eosinophils Absolute Basophils VBG pH VBG pCO2 VBG pO2 VBG HCO3 VBG Total CO2 VBG O2 Saturation VBG Base Excess Sodium Cancelled Potassium Cancelled Chloride Cancelled Carbon Dioxide Cancelled Anion Gap Cancelled BUN Cancelled Creatinine Cancelled Estimated GFR/1.73 m2 Cancelled Glucose Cancelled Calcium Cancelled Total Bilirubin AST ALT Alkaline Phosphatase Total Protein Albumin Urine Color Yellow Urine Clarity Clear Urine pH 5.5 Ur Specific [place] >= 1.030 H Urine Protein 30 H Urine Ketones >=160 H Urine Blood Trace-lysed H Urine Nitrite Negative Urine Bilirubin Negative Urine Urobilinogen 0.2 Ur Leukocyte Esterase Negative Urine RBC 0-2 Urine WBC 10-20 H Ur Epithelial Cells Few Urine Crystals Negative Urine Bacteria Moderate Urine Mucus Negative Ur Culture Indicated? Yes Urine Glucose 500 H Last Vital Signs Temp 36.7 C 10/08/21 19:08 Pulse 74 10/08/21 22:51 Resp 14 10/08/21 19:13 BP 109/74 10/08/21 22:51 Pulse Ox 100 10/08/21 22:51
[2021-10-08 23:46] LABS: Anion Gap 21.2 mmol/L (3-11); BUN 8 mg/dL (7-18); CO2 9.8 mmol/L (21.0-32.0); CREATININE 0.7 mg/dL (0.55-1.02); Chloride 106 mmol/L (98-107); Glucose 285 mg/dL (74-106); Potassium 3.7 mmol/L (3.5-5.1); Sodium 137 mmol/L (136-145)
[2021-10-09] VITALS (112 sets, daily range): BP systolic 103–119; BP diastolic 69–87; PULSE 66–96; RESP 11–22; TEMP 36.8–37.7; O2SAT 93–100
--- NOTE | 2021-10-09 | DI.RAD_ITS ---
Exam(s) XR PORTABLE CHEST AP EXAM: XR PORTABLE CHEST AP CLINICAL HISTORY: r/o pna - patient in dka. TECHNIQUE: 2D digital imaging was performed. COMPARISON: No exams were available for comparison FINDINGS: Single AP portable view. Chest leads in place. Heart size is upper normal. The mediastinum is not widened. Left lung is clear. There is platelike atelectasis in the lower right lung zone. No pleural effusio ns. No pneumothorax. There are no obvious fractures. IMPRESSION: There is platelike atelectasis in the lower right lung zone. No other pulmonary findings. DATA REPOSITORY: RADIATION DOSE DELIVERED: All CT scans at this facility use at least one of these dose optimization techniques: automated exposure control; mA and/or kV adjustment per patient size (includes targeted e xams where dose is matched to clinical indication); or iterative reconstruction.
[2021-10-09] MEDS: Insulin Aspart 100 UNITS/ML UNIT SC ×2 (00:53→02:07)
[2021-10-09] MEDS: Methadone 10 MG TAB 60 MG PO (00:56)
[2021-10-09] MEDS: Ondansetron O.D.T. 4 MG TABEF PO ×4 (00:57→21:05)
--- NOTE | 2021-10-09 01:57 | NUR.NOTE ---
Upon arrival to the unit, pt started complaining about her IV site. IV doesn't appear to be infiltrated/red/no leakage at the site. Pt is refusing anything to be given through that IV, which was placed by a physician in the ER. She is a very difficult stick. Insulin drip, potassium, and fluids are not being given. Physician Kaceylbrannon is aware. Blood sugar is being managed via SQ insulin for now, until pt becomes more cooperative and any other positive changes. Nursing Note:
[2021-10-09 06:58] LABS: BE (Venous) -13 mmol/L (-2-3); HCO3 (Venous) 14 mmol/L (23-28); O2 Sat (Venous) 99 %; TCO2 (Venous) 13 mmol/L (24-29); pCO2 (Venous) 30 mmHg (41-51); pH (Venous) 7.27 (7.31-7.41); pO2 (Venous) 114 mmHg
[2021-10-09 07:04] LABS: Abs Immature Grans 0.19 10^3/uL (0.0-0.06); Absolute Basophil Count 0.09 10^3/uL (0.0-0.2); Absolute Eosinophil Count 0.02 10^3/uL (0.0-0.7); Absolute Lymphocyte Count 2.73 10^3/uL (1.2-3.4); Absolute Neutrophil Count 7.68 10^3/uL (1.2-6.7); Basophils % 0.8; Eosinophils % 0.2; HCT 39.5 % (36.0-46.0); HGB 12.9 g/dL (11.2-15.7); Immature Grans % 1.7; Lymphocytes % 24.1; MCH 28.7 pg (27.0-33.0); MCHC 32.7 % (32.0-36.0); MCV 88 fL (80-95); MPV 9.9 fL (8.0-11.0); Monocytes % 5.3; Neutrophils % 67.9; Platelet Count 301 10^3/uL (130-400); RBC 4.49 10^6/uL (3.93-5.22); RDW 12.6 % (11.7-14.6); WBC 11.31 10^3/uL (4.4-10.8)
[2021-10-09 07:12] LABS: BUN 9 mg/dL (7-18); CREATININE 0.7 mg/dL (0.55-1.02); Calcium 8.5 mg/dL (8.5-10.1); Chloride 106 mmol/L (98-107); Glucose 229 mg/dL (74-106); Potassium 3.8 mmol/L (3.5-5.1); Sodium 137 mmol/L (136-145)
--- NOTE | 2021-10-09 07:15 | PUCC_ITS ---
General Date of Service Date of service: 10/09/21 Time of Service: 06:15 Reason for Admission to ICU: DKA Assessment and Plan Assessment and plan (1) DKA (diabetic ketoacidosis): Status: Acute (2) History of opioid abuse: Status: Acute (3) Atelectasis: Status: Acute (4) Abdominal pain: Status: Acute (5) Hypomagnesemia: Status: Acute (6) Leukocytosis: Status: Acute Assessment and plan: This is a 31 yo female admitted to the ICU for DKA. She has refused any IV medications and so has been receiving subq insulin which has been working as her labs are improving. She received Lantus 15U last night and has had SSI coverage as well. I wrote for 25U bid today as her home regimen is 40U bid of 70/30. Typically 70-80% of that dose can be given as Lantus as a conversion. She is not overly cooperative but I told her that we can treat her with subq insulin but that it would be very important for her to drink plenty of fluids as she is not receiving any fluids throughout her DKA really. She agreed to try. Recommendations Pulmonary: No acute concerns Cardiac: No EKG completed - I ordered one, she is on methadone so we should check her QTc Renal: Hypomagnesemia - PO repletion ordered I&O: Intake & Output 10/06/21 10/07/21 10/08/21 10/09/21 23:59 23:59 23:59 23:59 Intake Total 1000 / 1005.035 5.035 / 5.035 Output Total 425 / 425 Balance 1000 / 1005.035 -419.965 / -419.965 Weight 47.4 kg 47.4 kg Daily Fluid Goal:: even to positive GI Nutrition: OK for diabetic diet Push for PO fluid intake Date of Last Bowel Movement: 10/08/21 Infectious Disease: Dirty UA - repeat UA Atelectasis - recommend out of bed - IS Hematologic: Leukocytosis - likely reactive Neurologic: h/o opioid abuse - on methadone Endocrine: DKA - patient refusing use of IV - will treat with subq insulin - Lantus 25U bid is about equilivent to 40U bid 70/30 - recommend promotion of fluid intake - q1hr fingerstick - q4h BMP - if she stops improving or labs go in the opposite direction she will require IV insulin and this may require placement of central access Lines: PIV Prophylaxis: Lovenox Code Status: Resuscitation Status Full Code Subjective Critical and life-threatening events over the past 24 hours: This is a 31 yo female with T1DM and past opioid abuse on methadone who is admitted to the ICU for DKA. She had not been eating much prior to admission but did endorse taking her insulin. She had a dirty urine sample. She has been refusing use of her IV saying that it hurts, although it has been checked an has been working fine. She was given Lantus 15U last night. Normally she takes 40U Humulin 70/30 bid, so she likely needs more. She is refusing even fluids going into the IV. She states she has abdominal pain. She is not overly cooperative this morning with my assessment. Exam Narrative Exam Narrative: Gen: NAD, normal respiratory effort, well-nourished HENT: PERRL, nasal turbinates normal without erythema or inflammation, moist oral mucosa, Mallampati 2, No LAD or JVD Chest: No respiratory distress, normal appearance of chest, clear to auscultation bilaterally, no crackles or wheezes, normal inspiratory effort Heart: regular rate and rhythym, no murmurs, rubs or gallops Abdomen: Non-distended, soft, tender Extremities: No clubbing, edema, cyanosis, rashes Neuro: AAOx3 , non focal Psych: cooperative, appropriate mental affect Most Recent VS/Results Last Vital Signs Temp 37.3 C 10/09/21 04:10 Pulse 73 10/09/21 06:01 Resp 22 10/09/21 04:10 BP 107/72 10/09/21 06:01 Pulse Ox 93 10/09/21 06:20 Laboratory Results - last 24 hr 10/08/21 10/08/21 10/08/21 19:20 19:20 19:20 WBC 10.98 H RBC 5.22 Hgb 15.1 Hct 47.8 H MCV 92 MCH 28.9 MCHC 31.6 L RDW 12.5 Plt Count 343 MPV 10.1 Immature Gran % 3.6 Neutrophils % 76.4 Lymphocytes % 16.7 Monocytes % 1.9 Eosinophils % 0.1 Basophils % 1.3 Nucleated RBC % 0.0 Absolute Neutrophils 8.39 H Absolute Lymphocytes 1.83 Absolute Monocytes 0.21 Absolute Eosinophils 0.01 Absolute Basophils 0.14 VBG pH 7.09 L* VBG pCO2 23 L VBG pO2 33 VBG HCO3 7 L VBG Total CO2 7 L VBG O2 Saturation 62 VBG Base Excess < -15 L Sodium 132 L Potassium 4.3 Chloride 99 Carbon Dioxide 7.6 L Anion Gap 25.4 H BUN 9 Creatinine 0.9 Estimated GFR/1.73 m2 >= 60.00 Glucose 433 H Calcium 8.7 Total Bilirubin 0.8 AST 15 ALT 35 Alkaline Phosphatase 138 H Total Protein 8.8 H Albumin 3.6 Urine Color Urine Clarity Urine pH Ur Specific [place] Urine Protein Urine Ketones Urine Blood Urine Nitrite Urine Bilirubin Urine Urobilinogen Ur Leukocyte Esterase Urine RBC Urine WBC Ur Epithelial Cells Urine Crystals Urine Bacteria Urine Mucus Ur Culture Indicated? Urine Glucose 10/08/21 10/08/21 10/08/21 19:50 22:35 23:30 WBC RBC Hgb Hct MCV MCH MCHC RDW Plt Count MPV Immature Gran % Neutrophils % Lymphocytes % Monocytes % Eosinophils % Basophils % Nucleated RBC % Absolute Neutrophils Absolute Lymphocytes Absolute Monocytes Absolute Eosinophils Absolute Basophils VBG pH VBG pCO2 VBG pO2 VBG HCO3 VBG Total CO2 VBG O2 Saturation VBG Base Excess Sodium Cancelled 137 Potassium Cancelled 3.7 Chloride Cancelled 106 Carbon Dioxide Cancelled 9.8 L Anion Gap Cancelled 21.2 H BUN Cancelled 8 Creatinine Cancelled 0.7 Estimated GFR/1.73 m2 Cancelled >= 60.00 Glucose Cancelled 285 H Calcium Cancelled 8.0 L Total Bilirubin AST ALT Alkaline Phosphatase Total Protein Albumin Urine Color Yellow Urine Clarity Clear Urine pH 5.5 Ur Specific [place] >= 1.030 H Urine Protein 30 H Urine Ketones >=160 H Urine Blood Trace-lysed H Urine Nitrite Negative Urine Bilirubin Negative Urine Urobilinogen 0.2 Ur Leukocyte Esterase Negative Urine RBC 0-2 Urine WBC 10-20 H Ur Epithelial Cells Few Urine Crystals Negative Urine Bacteria Moderate Urine Mucus Negative Ur Culture Indicated? Yes Urine Glucose 500 H 10/09/21 10/09/21 00:53 06:44 WBC RBC Hgb Hct MCV MCH MCHC RDW Plt Count MPV Immature Gran % Neutrophils % Lymphocytes % Monocytes % Eosinophils % Basophils % Nucleated RBC % Absolute Neutrophils Absolute Lymphocytes Absolute Monocytes Absolute Eosinophils Absolute Basophils VBG pH 7.27 L VBG pCO2 30 L VBG pO2 114 VBG HCO3 14 L VBG Total CO2 13 L VBG O2 Saturation 99 VBG Base Excess -13 L Sodium Cancelled Potassium Cancelled Chloride Cancelled Carbon Dioxide Cancelled Anion Gap Cancelled BUN Cancelled Creatinine Cancelled Estimated GFR/1.73 m2 Cancelled Glucose Cancelled Calcium Cancelled Total Bilirubin AST ALT Alkaline Phosphatase Total Protein Albumin Urine Color Urine Clarity Urine pH Ur Specific [place] Urine Protein Urine Ketones Urine Blood Urine Nitrite Urine Bilirubin Urine Urobilinogen Ur Leukocyte Esterase Urine RBC Urine WBC Ur Epithelial Cells Urine Crystals Urine Bacteria Urine Mucus Ur Culture Indicated? Urine Glucose Review of Systems Unobtainable due to (patient not overly cooperative) Time spent with patient Time spent in Critical Care: 40 Time spent in Critical care included: Chart review, Documenting critically ill care, Time at immediate bedside and Discussing critically ill care with other medical staff
[2021-10-09 07:16] LABS: Magnesium 1.3 mg/dL (1.8-2.4)
[2021-10-09] MEDS: Insulin Glargine 300 UNITS/3 ML PEN 25 UNITS SC ×2 (08:19→20:05)
[2021-10-09] MEDS: Insulin Aspart 300 UNITS/3 ML PEN SC ×3 (08:22→12:25)
--- NOTE | 2021-10-09 08:30 | RT.EKG_ITS ---
APPROVED REPORT Exam: Resting ECG Reason for Exam: on methadone Patient Location: I HR:72 bpm ECG Measurements Heart Rate 72 AXIS NM 143 P 70 QRSd 98 QRS 91 QT 447 T 62 QTc 490 Conclusion Sinus rhythm...normal P axis, V-rate 50- 99 Borderline right axis deviation...QRS axis ( 90,110) Borderline prolonged QT interval...QTc >475mS
--- NOTE | 2021-10-09 09:42 | W.PM.PROGNOT ---
Date of Service Date of service: 10/09/21 Time of Service: 08:42 Assessment and Plan Assessment and plan (1) DKA (diabetic ketoacidosis): Status: Acute Assessment and plan: I got the patient to at least verbally agreed to allow nursing staff to give her IV fluids IV insulin to treat her DKA. If her left antecubital IV is nonfunctional then we will ask anesthesia to place a midline. If were unable to establish an IV or the patient refuses the use of an IV then will have no alternative other than using subcutaneous insulin and monitor blood sugars every hour. Patient has been started on Lantus 25 units twice a day which was ordered by Dr. Bal earlier this morning. 45 minutes critical care time spent interviewing patient examining patient discussion of her plan of care with nursing staff and Dr. Bal and anesthesia. (2) Acute dehydration: Status: Acute Assessment and plan: Patient needs IV fluid replacement. Antiemetics have been ordered. (3) Acute opioid withdrawal: Status: Acute Assessment and plan: I am not convinced that she is in opioid withdrawal I think her abdominal pain is secondary to her DKA. However if she has missed some doses of her methadone is possible that she may be in opioid withdrawal. I will ask pharmacy to converse with MICHELLE and find out the last date that the patient showed up for her appointment. If it corroborates her story of having been seen about 5 days ago that I think it is reasonable that she may have missed her last appointment due to her sister's in which case I think she should be offered a chance to go back into treatment. I told the patient that if she does not cooperate with treatment for DKA then I cannot condone reinstituting methadone treatment. I would suggest institution of ketamine for acute narcotic withdrawal. (4) Hypomagnesemia: Status: Acute Assessment and plan: Parenteral and oral replacement with monitoring (5) Leukocytosis: Status: Acute Assessment and plan: Most likely secondary to DKA. Were not seeing any focal signs of infectious process. (6) Atelectasis: Status: Acute Assessment and plan: Will order Acapella and incentive spirometry and encourage her to be up out of bed. (7) Depression: Status: Chronic Assessment and plan: Consider ketamine therapy for acute depression as well as treatment of her narcotic withdrawal Subjective Subjective Interval history since last seen: Patient is a 31-year-old female with a history of type 1 diabetes mellitus for the last 2 years as well as a history of IV drug abuse. She reportedly is a client at [facility] and is on methadone. She states she takes 90 mg of methadone a day. Her pharmacist called [facility] and was told that she is no longer client there. Patient states that she had been there is recent as 5 days ago but missed her last appointment due to her sister's recent . Patient has not been eating or drinking and presented very dehydrated in diabetic ketoacidosis. On admission her anion gap was 25.4 her carbon dioxide level was 7.6 BUN and creatinine were normal at 9 and 0.9 her glucose was 433. LFTs were normal. CBC demonstrated leukocytosis 10,900. She had no fevers no cough no shortness of breath. She does complain of epigastric abdominal discomfort and nausea. Last bowel movement was yesterday. Imaging last night included chest x-ray that showed platelike atelectasis right lower lung zone but no other pulmonary findings. She was started on IV fluids as well as on insulin drip per [place] protocol however during the night her IV became infiltrated it was restarted and once it was confirmed to be patent patient refused to allow them to use her IV. Her IV has been off since 12:30 AM this morning. The air carrier operations inspector treated with subcutaneous insulin through the night. Fingerstick blood sugars were monitored through the night she was at a high of 317 mg/dL around 1 AM and then blood sugars ran between 195 and 227 this morning but is now rising. Last couple blood sugars been 258 and 293. Last chemistry was from 644 this morning. Anion gap was down to 16 her carbon dioxide was up to 15 and her glucose was 229. Since she has been refusing blood draws and been refusing a nasal COVID swab and been refusing IV fluids and IV insulin we have been monitor blood sugars with fingerstick blood sugars every hour and giving her NovoLog every 1-2 hours. I spoke with Shayna and asked her whether she skipped any insulin doses she said not she last took her insulin yesterday. She admits that she is depressed over her sister's but Shayna denies wanting to . Shayna states she has a 4-year-old and a 6-year-old at home. I told Shayna that she needs to work with the nursing staff to get her feeling better she needs IV fluids and IV insulin. Exam Narrative Exam Narrative: Thin cachectic female with poor oral hygiene with dental caries Neck is supple no JVD she has muscle wasting about her neck and upper chest. Arms are thin and legs are thin. Lungs are clear Heart is regular rate and rhythm without appreciable murmur rub Abdomen nondistended with normal bowel sounds she has epigastric tenderness to palpation but she also has tenderness throughout the abdomen. Feet and legs without any open sores or ulcers skin is very dry pedal pulses are normal. Nails are polished with yellow nail frisian Objective Last Vital Signs Temp 37.1 C 10/09/21 08:09 Pulse 75 10/09/21 08:09 Resp 14 10/09/21 08:09 BP 104/71 10/09/21 08:09 Pulse Ox 96 10/09/21 08:09 Laboratory Results - last 24 hr 10/08/21 10/08/21 10/08/21 19:20 19:20 19:20 WBC 10.98 H RBC 5.22 Hgb 15.1 Hct 47.8 H MCV 92 MCH 28.9 MCHC 31.6 L RDW 12.5 Plt Count 343 MPV 10.1 Immature Gran % 3.6 Neutrophils % 76.4 Lymphocytes % 16.7 Monocytes % 1.9 Eosinophils % 0.1 Basophils % 1.3 Nucleated RBC % 0.0 Absolute Neutrophils 8.39 H Absolute Lymphocytes 1.83 Absolute Monocytes 0.21 Absolute Eosinophils 0.01 Absolute Basophils 0.14 VBG pH 7.09 L* VBG pCO2 23 L VBG pO2 33 VBG HCO3 7 L VBG Total CO2 7 L VBG O2 Saturation 62 VBG Base Excess < -15 L Sodium 132 L Potassium 4.3 Chloride 99 Carbon Dioxide 7.6 L Anion Gap 25.4 H BUN 9 Creatinine 0.9 Estimated GFR/1.73 m2 >= 60.00 Glucose 433 H Calcium 8.7 Magnesium Total Bilirubin 0.8 AST 15 ALT 35 Alkaline Phosphatase 138 H Total Protein 8.8 H Albumin 3.6 Urine Color Urine Clarity Urine pH Ur Specific [employer] Urine Protein Urine Ketones Urine Blood Urine Nitrite Urine Bilirubin Urine Urobilinogen Ur Leukocyte Esterase Urine RBC Urine WBC Ur Epithelial Cells Urine Crystals Urine Bacteria Urine Mucus Ur Culture Indicated? Urine Glucose 10/08/21 10/08/21 10/08/21 19:50 22:35 23:30 WBC RBC Hgb Hct MCV MCH MCHC RDW Plt Count MPV Immature Gran % Neutrophils % Lymphocytes % Monocytes % Eosinophils % Basophils % Nucleated RBC % Absolute Neutrophils Absolute Lymphocytes Absolute Monocytes Absolute Eosinophils Absolute Basophils VBG pH VBG pCO2 VBG pO2 VBG HCO3 VBG Total CO2 VBG O2 Saturation VBG Base Excess Sodium Cancelled 137 Potassium Cancelled 3.7 Chloride Cancelled 106 Carbon Dioxide Cancelled 9.8 L Anion Gap Cancelled 21.2 H BUN Cancelled 8 Creatinine Cancelled 0.7 Estimated GFR/1.73 m2 Cancelled >= 60.00 Glucose Cancelled 285 H Calcium Cancelled 8.0 L Magnesium Total Bilirubin AST ALT Alkaline Phosphatase Total Protein Albumin Urine Color Yellow Urine Clarity Clear Urine pH 5.5 Ur Specific [employer] >= 1.030 H Urine Protein 30 H Urine Ketones >=160 H Urine Blood Trace-lysed H Urine Nitrite Negative Urine Bilirubin Negative Urine Urobilinogen 0.2 Ur Leukocyte Esterase Negative Urine RBC 0-2 Urine WBC 10-20 H Ur Epithelial Cells Few Urine Crystals Negative Urine Bacteria Moderate Urine Mucus Negative Ur Culture Indicated? Yes Urine Glucose 500 H 10/09/21 10/09/21 10/09/21 00:53 06:44 06:44 WBC 11.31 H RBC 4.49 Hgb 12.9 D Hct 39.5 MCV 88 D MCH 28.7 MCHC 32.7 D RDW 12.6 Plt Count 301 MPV 9.9 Immature Gran % 1.7 Neutrophils % 67.9 Lymphocytes % 24.1 Monocytes % 5.3 Eosinophils % 0.2 Basophils % 0.8 Nucleated RBC % 0.0 Absolute Neutrophils 7.68 H Absolute Lymphocytes 2.73 Absolute Monocytes 0.60 Absolute Eosinophils 0.02 Absolute Basophils 0.09 VBG pH VBG pCO2 VBG pO2 VBG HCO3 VBG Total CO2 VBG O2 Saturation VBG Base Excess Sodium Cancelled Potassium Cancelled Chloride Cancelled Carbon Dioxide Cancelled Anion Gap Cancelled BUN Cancelled Creatinine Cancelled Estimated GFR/1.73 m2 Cancelled Glucose Cancelled Calcium Cancelled Magnesium 1.3 L Total Bilirubin AST ALT Alkaline Phosphatase Total Protein Albumin Urine Color Urine Clarity Urine pH Ur Specific [employer] Urine Protein Urine Ketones Urine Blood Urine Nitrite Urine Bilirubin Urine Urobilinogen Ur Leukocyte Esterase Urine RBC Urine WBC Ur Epithelial Cells Urine Crystals Urine Bacteria Urine Mucus Ur Culture Indicated? Urine Glucose 10/09/21 10/09/21 10/09/21 06:44 06:44 12:00 WBC RBC Hgb Hct MCV MCH MCHC RDW Plt Count MPV Immature Gran % Neutrophils % Lymphocytes % Monocytes % Eosinophils % Basophils % Nucleated RBC % Absolute Neutrophils Absolute Lymphocytes Absolute Monocytes Absolute Eosinophils Absolute Basophils VBG pH 7.27 L VBG pCO2 30 L VBG pO2 114 VBG HCO3 14 L VBG Total CO2 13 L VBG O2 Saturation 99 VBG Base Excess -13 L Sodium 137 Cancelled Potassium 3.8 Cancelled Chloride 106 Cancelled Carbon Dioxide 15.0 L Cancelled Anion Gap 16.0 H Cancelled BUN 9 Cancelled Creatinine 0.7 Cancelled Estimated GFR/1.73 m2 >= 60.00 Cancelled Glucose 229 H Cancelled Calcium 8.5 Cancelled Magnesium Total Bilirubin AST ALT Alkaline Phosphatase Total Protein Albumin Urine Color Urine Clarity Urine pH Ur Specific [employer] Urine Protein Urine Ketones Urine Blood Urine Nitrite Urine Bilirubin Urine Urobilinogen Ur Leukocyte Esterase Urine RBC Urine WBC Ur Epithelial Cells Urine Crystals Urine Bacteria Urine Mucus Ur Culture Indicated? Urine Glucose
--- NOTE | 2021-10-09 11:21 | PDOC.MHCN_ITS ---
Date of service: 10/09/21 Time of Service: 10:21 Mental Health Crisis Note Presenting Issue How did you arrive at the ED and why did you come: Client arrived at [facility] ED on 10/09/21 due to high blood sugar. Precipitating Factors Client denies SI/HI, intent and plan. Disposition BEHAVIOR: Client is laying down in hospital bed covered with a blanket. Client engages with this abstract writer minimally. EYE CONTACT: None MOOD: Depressed. AFFECT: Flat APPETITE: Poor SLEEP(trouble falling/staying asleep: Poor Plan Client denies SI/HI and refuses intake paperwork and services through [facility]. Client states that she just wants to feel better and is agreeable to allow medical billing and coding instructor to start an IV. Signature Clinician's Name/Title: Qian Bowers, [facility] Emergency Clinician.
--- NOTE | 2021-10-09 11:21 | PDOC.MHCN ---
Date of service: 10/09/21 Time of Service: 10:21 Mental Health Crisis Note Presenting Issue How did you arrive at the ED and why did you come: Client arrived at [facility] ED on 10/09/21 due to high blood sugar. Precipitating Factors Client denies SI/HI, intent and plan. Disposition BEHAVIOR: Client is laying down in hospital bed covered with a blanket. Client engages with this television writer minimally. EYE CONTACT: None MOOD: Depressed. AFFECT: Flat APPETITE: Poor SLEEP(trouble falling/staying asleep: Poor Plan Client denies SI/HI and refuses intake paperwork and services through [facility]. Client states that she just wants to feel better and is agreeable to allow medical lab technician to start an IV. Signature Clinician's Name/Title: Qian Bowers, [facility] Emergency Clinician.
[2021-10-09] MEDS: MAGNESIUM SULFATE 4 GM/100 ML BAG IVPB (13:25)
[2021-10-09] MEDS: DEXTROSE 5%-0.45% SALINE 1,000 ML 150 ML IV (13:25)
[2021-10-09] MEDS: INSULIN REGULAR IN 0.9 % NACL 100 UNIT/100 ML BAG IV (13:25)
[2021-10-09 13:39] LABS: Source Nasal/Nares
[2021-10-09 14:03] LABS: Anion Gap 11.7 mmol/L (3-11); BUN 10 mg/dL (7-18); CO2 20.3 mmol/L (21.0-32.0); CREATININE 0.7 mg/dL (0.55-1.02); Calcium 8.3 mg/dL (8.5-10.1); Chloride 103 mmol/L (98-107); Glucose 253 mg/dL (74-106); Lipase 14 U/L (73-393); Potassium 3.1 mmol/L (3.5-5.1); Sodium 135 mmol/L (136-145)
[2021-10-09] MEDS: Normal Saline Flush 10 ML SYR (14:03)
[2021-10-09 14:20] LABS: COVID-19 PCR Negative (Negative)
--- NOTE | 2021-10-09 14:39 | NUR.NOTE ---
Nursing Note: Patient states her younger sister approximately 3 days ago of and overdose.
[2021-10-09] MEDS: ACETAMINOPHEN 1,000 MG/100 ML BTL 400 MG IVPB (15:15)
--- NOTE | 2021-10-09 16:08 | PDOC.CMIN ---
- If Service Date Differs Date of service: 10/09/21 Time of Service: 16:08 Care Management Initial Assess REASON FOR HOSPITALIZATION:: Diabetic ketoacidosis PAST MEDICAL HISTORY/PAST SURGICAL HISTORY:: All Active Problems. History of opioid abuse (Acute). Flank pain (Acute). Bladder wall thickening (Acute). Abdominal pain (Acute). Hyperglycemia (Acute). DKA (diabetic ketoacidosis) (Acute). Acute opioid withdrawal (Acute). Acute dehydration (Acute). Medical History. Atrial septal defect. Diabetes. Hidradenitis suppurativa. Kidney stones. Surgical History. Abscess of multiple sites. history of multiple incision and drainage. H/O section. History of hysterectomy PREVIOUS FUNCTIONAL STATUS/SOCIAL/FAMILY SUPPORTS:: Shayna lives in [facility]. She has an aunt who lives in [place]. She is indpendent with ADL's. CURRENT FUNCTIONAL STATUS:: Shayna is on precautions for Covid, as she is not willing to be tested, therefore CM did not meet with her in person. Per RN, she has been refusing care, and not engaging well in conversation- keeping her eyes closed and using short answers to questions. requested a MH consult, as the report stated that her sister three days ago, and she has been exhibiting symptoms of depression. She met with Kathi [facility], over zoom, who stated that she didn't engage well with her either. She denied any SI/HI/depression, and declined an offer for o/p services from [facility]. CM will continue to follow. ADVANCE DIRECTIVES:: Not on file. Has patient been provided with info about the portal/API?: No Did the patient sign up for the portal?: No CODE STATUS:: Full Code INSURANCE COVERAGE / FINANCIAL ISSUES:: [facility] CURRENT HOME/COMMUNITY SERVICES/EQUIPMENT:: No known services/equipment. PRIMARY CARE PHYSICIAN:: none- CM will set up f/u with quality control inspector MD. POTENTIAL DISCHARGE NEEDS:: Follow up appointments. PATIENT/FAMILY EDUCATION NEEDS:: Review discharge instructions and limitations, discussion of self care needs including ask me three. ANTICIPATED BARRIERS TO DISCHARGE:: None identified. TRANSPORTATION:: Via private vehicle. PLAN:: Anticipate Shayna will return home when medically cleared. She will transport via private vehicle. She will follow up with her PCP and discharge plan of care. CM will continue to follow.
[2021-10-09] MEDS: POTASSIUM CHLORIDE 20 MEQ/100 ML BAG 50 MEQ IVPB (18:11)
[2021-10-09] MEDS: POTASSIUM CHLORIDE/D5-0.45NACL 1,000 ML 150 MEQ IV (18:12)
--- NOTE | 2021-10-09 19:42 | NUR.NOTE ---
Addendum entered by Ryan Weiss RN 10/09/21 21:43: Per Dr. Ashley. I am to stop the insulin drip, until after the KCL 20mEq runner is complete. Original Note: Nursing Note:
[2021-10-09] MEDS: POTASSIUM CHLORIDE 20 MEQ/100 ML BAG 100 MEQ IVPB (20:05)
[2021-10-09] MEDS: Magnesium Oxide 400 MG TAB 800 MG PO (20:30)
[2021-10-09] MEDS: Acetaminophen 325 MG TAB PO (20:38)
[2021-10-09 21:49] LABS: BUN 7 mg/dL (7-18); CREATININE 0.7 mg/dL (0.55-1.02); Calcium 7.9 mg/dL (8.5-10.1); Chloride 104 mmol/L (98-107); Glucose 197 mg/dL (74-106); Sodium 134 mmol/L (136-145)
[2021-10-09 21:50] LABS: Magnesium 1.9 mg/dL (1.8-2.4)
[2021-10-09 22:00] LABS: Potassium 4.4 mmol/L (3.5-5.1)
[2021-10-10] VITALS (18 sets, daily range): BP systolic 94–122; BP diastolic 66–89; PULSE 63–85; RESP 12–24; TEMP 37.3–37.9; O2SAT 97–99
[2021-10-10] MEDS: POTASSIUM CHLORIDE/D5-0.45NACL 1,000 ML 150 MEQ IV ×2 (00:38→07:22)
[2021-10-10] MEDS: Methadone 10 MG TAB 60 MG PO (01:02)
[2021-10-10] MEDS: INSULIN REGULAR IN 0.9 % NACL 100 UNIT/100 ML BAG 8 UNIT IV (01:12)
[2021-10-10] MEDS: Ondansetron O.D.T. 4 MG TABEF PO ×2 (01:12→08:44)
[2021-10-10 01:17] LABS: Anion Gap 5.9 mmol/L (3-11); BUN 6 mg/dL (7-18); CO2 25.1 mmol/L (21.0-32.0); CREATININE 0.6 mg/dL (0.55-1.02); Calcium 7.8 mg/dL (8.5-10.1); Chloride 106 mmol/L (98-107); Glucose 194 mg/dL (74-106); Potassium 3.6 mmol/L (3.5-5.1); Sodium 137 mmol/L (136-145)
[2021-10-10] MEDS: Normal Saline Flush 10 ML SYR IVP (05:30)
[2021-10-10 06:59] LABS: ALT 23 U/L (14-59); AST 12 U/L (15-37); Albumin 2.6 g/dL (3.4-5.0); Alkaline Phosphatase 90 U/L (46-116); Anion Gap 7.9 mmol/L (3-11); BUN 4 mg/dL (7-18); Bilirubin, Total 0.6 mg/dL (0.2-1.0); CO2 25.1 mmol/L (21.0-32.0); CREATININE 0.5 mg/dL (0.55-1.02); Calcium 7.8 mg/dL (8.5-10.1); Chloride 107 mmol/L (98-107); Glucose 91 mg/dL (74-106); Potassium 3.6 mmol/L (3.5-5.1); Sodium 140 mmol/L (136-145); Total Protein 6.4 g/dL (6.4-8.2)
[2021-10-10] MEDS: Insulin Glargine 300 UNITS/3 ML PEN 25 UNITS SC ×2 (07:26→20:05)
--- NOTE | 2021-10-10 10:40 | W.INDIABCONS ---
Date of service: 10/10/21 Time of Service: 09:40 Diabetes Inpatient Consult Reason for Visit: dm DESCRIPTION/ASSESSMENT: Unable to meet with Shayna today as refusing care and under covid precautions. Shayna admitted with DKA with hx of DM1 on in treatment for opiod abuse. BMI <19, appears cachexic. Home DM meds: 45 u NPH BID, Sliding scale aspart at meals. No recent A1C. Has Medicaid. Unclear why she prefers NPH as increases risk for hypoglycemia. At high nutritional risk in view of low weight, suspect poorly controlled DM. INTERVENTION: Recommend changing NPH to long acting basal insulin such as Levemir/tresiba/toujeo to reduce risk of hypoglycemia PLAN: Will be available for diabetes education if Shayna willing Time Spent in Nutritional Counseling and Treatment: 0
--- NOTE | 2021-10-10 10:41 | NUR.NOTE ---
This keno writer/runner has now gone into patients room to offer AM care 2 times and each time the patient has refused. RN notified. Will attempt again at a later time. Nursing Note:
--- NOTE | 2021-10-10 12:02 | NUR.NOTE ---
This narrative writer attempted to get patients blood glucose and blood pressure and patient refused. RN notified Nursing Note:
--- NOTE | 2021-10-10 12:57 | PGE_ITS ---
Date of Service Date of service: 10/10/21 Time of Service: 11:58 Assessment and Plan Assessment and plan (1) DKA (diabetic ketoacidosis): Status: Resolved Assessment and plan: DKA now resolved she is now on basal bolus insulin therapy. She is on Lantus 25 units twice a day. Put on sliding scale moderate dose NovoLog along with mealtime coverage at a ratio of 1:10. At home she was using Humulin 70/30 40 units twice a day. I will monitor blood sugars today and if she does not go back into DKA she could be discharged for outpatient follow-up. But I will wait till she is eating well enough before she is discharged. I think her nausea and abdominal pain is a symptom of her narcotic withdrawal. (2) Acute dehydration: Status: Resolved Assessment and plan: Resolved. Encourage patient to eat and drink to prevent dehydration. Although she complains of nausea abdominal pain she has had no vomiting. (3) Acute opioid withdrawal: Status: Acute Assessment and plan: Now that her DKA is resolved I cannot ascribe her abdominal pain to DKA. Dr. Almonte evaluated last night was convinced that she is in narcotic withdrawal. This time we will go ahead and keep her on methadone while she is here in the hospital but she will need to follow-up with MICHELLE for intake assessment and follow their narcotic contract in order to continue to receive methadone. (4) Hypomagnesemia: Status: Resolved Assessment and plan: No longer requiring parenteral or oral supplementation. She had some loose stools therefore I am going to discontinue her oral magnesium. (5) Leukocytosis: Status: Acute Assessment and plan: Most likely secondary to DKA. Were not seeing any focal signs of infectious process. (6) Atelectasis: Status: Acute Assessment and plan: Will order Acapella and incentive spirometry and encourage her to be up out of b ed. (7) Depression: Status: Chronic Assessment and plan: Anesthesia deferred treatment with ketamine drip for her pain and her depression. I will start her on SSRI Subjective Subjective Interval history since last seen: Patient is now out of DKA and has been out of DKA since 9:00 last night. Anion gap closed around 915. This morning her electrolytes have improved potassium is up to 3.6. Anion gap is on 7.9 blood sugar was 91 this morning. Patient has been noncompliant with the nursing staff regarding allowing them to do fingersticks and repeat lab draws. Patient complains of nausea and diffuse abdominal pain. Patient has been going through narcotic withdrawal. Dr. Almonte gave her a dose of methadone 60 mg last night. Per our pharmacist conversation with [facility] patient was dismissed from [facility] September 02, 2021 and her last prescription for methadone was August 25, 2021. Patient now tells me that she has a new appointment for intake at [facility]. At this point I will continue treating her with methadone 60 mg daily. Exam Narrative Exam Narrative: Thin cachectic female who is alert and oriented. Abdomen scaphoid normal bowel sounds soft with voluntary guarding diffuse tenderness without rebound tenderness. Objective Last Vital Signs Temp 37.9 C H 10/10/21 12:12 Pulse 73 10/10/21 12:10 Resp 12 10/10/21 10:01 BP 115/81 10/10/21 12:10 Pulse Ox 99 10/10/21 03:00 Laboratory Results - last 24 hr 10/08/21 10/09/21 10/09/21 19:53 12:00 13:45 Sodium 135 L Potassium 3.1 L Chloride 103 Carbon Dioxide 20.3 L Anion Gap 11.7 H BUN 10 Creatinine 0.7 Estimated GFR/1.73 m2 >= 60.00 Glucose 253 H Calcium 8.3 L Magnesium Total Bilirubin AST ALT Alkaline Phosphatase Total Protein Albumin Lipase 14 COVID-19 Source Cancelled Nasal/Nares SARS-CoV-2 (PCR) Cancelled Negative Influenza Type A (PCR) Cancelled Cancelled Influenza Type B (PCR) Cancelled Cancelled RSV (PCR) Cancelled Cancelled 10/09/21 10/09/21 10/09/21 16:00 20:00 21:15 Sodium Cancelled Cancelled Potassium Cancelled Cancelled Chloride Cancelled Cancelled Carbon Dioxide Cancelled Cancelled Anion Gap Cancelled Cancelled BUN Cancelled Cancelled Creatinine Cancelled Cancelled Estimated GFR/1.73 m2 Cancelled Cancelled Glucose Cancelled Cancelled Calcium Cancelled Cancelled Magnesium 1.9 Total Bilirubin AST ALT Alkaline Phosphatase Total Protein Albumin Lipase COVID-19 Source SARS-CoV-2 (PCR) Influenza Type A (PCR) Influenza Type B (PCR) RSV (PCR) 10/09/21 10/10/21 10/10/21 21:15 00:50 05:50 Sodium 134 L 137 140 Potassium 4.4 D 3.6 3.6 Chloride 104 106 107 Carbon Dioxide 23.0 25.1 25.1 Anion Gap 7.0 5.9 7.9 BUN 7 6 L 4 L Creatinine 0.7 0.6 0.5 L Estimated GFR/1.73 m2 >= 60.00 >= 60.00 >= 60.00 Glucose 197 H 194 H 91 Calcium 7.9 L 7.8 L 7.8 L Magnesium Total Bilirubin 0.6 AST 12 L ALT 23 Alkaline Phosphatase 90 Total Protein 6.4 Albumin 2.6 L Lipase COVID-19 Source SARS-CoV-2 (PCR) Influenza Type A (PCR) Influenza Type B (PCR) RSV (PCR)
[2021-10-10] MEDS: Methadone Liquid 10 MG/ML 60 MG PO (13:23)
[2021-10-10] MEDS: PARoxetine 10 MG TAB PO (13:28)
[2021-10-10 13:35] LABS: Bilirubin Negative (Negative); Blood Negative (Negative); Clarity Clear (Clear); Glucose Negative (Negative); Ketones Negative (Negative); Leukocyte Esterase Negative (Negative); Nitrite Negative (Negative); Urobilinogen 0.2 EU/dL (Up TO 0.2)
--- NOTE | 2021-10-10 17:02 | PDOC.CMPRO ---
- If Service Date Differs Date of service: 10/10/21 Time of Service: 17:02 Care Management Progress Note S/O: Shayna was lying in bed when CM met with her. She was minimally engaged in conversation. CM stated that we would assist with re connecting her to [facility]'s services upon discharge. Per MD, she has not been to [facility] since 09/02/21. CM will call [facility] to inquire about the process for Shayna to have services through them. CM will continue to follow. A: Shayna is a 31 year old female admitted to [facility] on 10/08/21 for DKA. P: Anticipate Shayna will return home when medically cleared. She will transport via private vehicle. She will follow up with her PCP and discharge plan of care. CM will continue to follow.
[2021-10-11] MEDS: Ondansetron O.D.T. 4 MG TABEF PO (04:16)
[2021-10-11 04:35] VITALS: BP 107/80; PULSE 74; RESP 14; TEMP 36.4; O2SAT 98
[2021-10-11 04:40] VITALS: BP 107/80; PULSE 68; O2SAT 99
[2021-10-11 08:00] VITALS: RESP 16; TEMP 37.2
[2021-10-11] MEDS: PARoxetine 10 MG TAB PO (08:27)
[2021-10-11] MEDS: Normal Saline Flush 10 ML SYR IVP (08:29)
[2021-10-11] MEDS: Methadone Liquid 10 MG/ML 60 MG PO (08:30)
[2021-10-11] MEDS: Insulin Glargine 300 UNITS/3 ML PEN 25 UNITS SC (08:39)
[2021-10-11 09:15] VITALS: BP 112/79; PULSE 74
[2021-10-11] MEDS: Trimethobenzamide 200 MG/2 ML VIAL IM (09:49)
--- NOTE | 2021-10-11 11:30 | PGE_ITS ---
Date of Service Date of service: 10/11/21 Time of Service: 10:30 Assessment and Plan Assessment and plan (1) DKA (diabetic ketoacidosis): Status: Resolved Assessment and plan: DKA is resolved. Blood sugars running on the lower side now primarily because patient has not been eating due to nausea. Glucose as low as 73 last night. Today she is running in the 130s to 140s. Currently she is on Lantus 25 units twice a day along with sliding scale moderate scale. She is not required any additional insulin from sliding scale. She also has carbohydrate coverage at a rate of 1-10 but has not required that either. Because of her nausea and epigastric discomfort and postprandial fullness I suspect that she probably has some underlying gastroparesis. I will give her a trial of Reglan and see if this helps. I will also put her on a PPI for GI protection in the event that she may have some peptic ulcer disease. This can be further worked up and manage as an outpatient including outpatient EGD and if this is unrevealing she can be taken off the Reglan while she undergoes a nuclear gastric emptying study. (2) Type 1 diabetes mellitus: Status: Acute Assessment and plan: As above. I will have the patient follow-up with family living educator (3) Acute opioid withdrawal: Status: Acute Assessment and plan: Patient was restarted on methadone 60 mg daily per advice from Dr. Almonte. Care management has referred her to an outpatient narcotic clinic called [facility], apparently [facility] will not take the client back. (4) Depression: Status: Chronic Assessment and plan: Patient was started on Paxil 10 mg daily beginning yesterday. I will discharge her on the Paxil with instructions to increase it to 20 mg daily after a week. Subjective Subjective Interval history since last seen: Patient is of nausea and epigastric discomfort with meals. It is suspected that she probably has some diabetic gastroparesis. I will give her a trial of Reglan . I will also put her on a PPI for GI protection. Exam Narrative Exam Narrative: Alert and oriented sitting up in bed looking at her phone. No acute distress. Lungs are clear Heart is regular rate and rhythm Abdomen scaphoid soft nondistended with normal bowel sounds with some mild epigastric tenderness but without rebound. Objective Last Vital Signs Temp 37.2 C 10/11/21 08:00 Pulse 74 10/11/21 09:15 Resp 16 05/20/22 08:00 BP 112/79 10/11/21 09:15 Pulse Ox 99 10/11/21 04:40 Laboratory Results - last 24 hr 10/10/21 13:20 Urine Color Yellow Urine Clarity Clear Urine pH 6.0 Ur Specific [place] 1.020 Urine Protein Negative Urine Ketones Negative Urine Blood Negative Urine Nitrite Negative Urine Bilirubin Negative Urine Urobilinogen 0.2 Ur Leukocyte Esterase Negative Urine Glucose Negative Reviewed Pertinent PMH: Yes
--- NOTE | 2021-10-11 11:30 | RT.EKG_ITS ---
APPROVED REPORT Exam: Resting ECG Reason for Exam: monitor QTC Patient Location: I HR:72 bpm ECG Measurements Heart Rate 72 AXIS RI 148 P 75 QRSd 89 QRS 75 QT 432 T 55 QTc 473 Conclusion Sinus rhythm...normal P axis, V-rate 50- 99 Probable left atrial enlargement...P >50mS, <-0.10mV V1 Baseline wander in lead(s) V1,V4
[2021-10-11] MEDS: Pantoprazole 40 MG TABCR PO (12:04)
[2021-10-11] MEDS: Metoclopramide 10 MG/2 ML VIAL IVP (12:04)
[2021-10-11] MEDS: Insulin Aspart 300 UNITS/3 ML PEN SC ×3 (13:08→17:09)
[2021-10-11] MEDS: Metoclopramide 10 MG TAB PO (16:11)
--- NOTE | 2021-10-11 16:39 | PDOC.CMDIS ---
- If Service Date Differs Date of service: 10/11/21 Time of Service: 16:39 LACE Index Scoring Tool - Questions: Length of Stay (in days): 3 Acuity (Admit via E.D.?): Yes Comorbidities: Diabetes w/o Complication E.D. Visits: 3 - Answers: Total Score: 10 Risk of Readmission: High Risk Care Management Discharge Reason for Hospitalization: Diabetic ketoacidosis Discharge Plan: Shayna will return home today with no new services. She will be driven home via private vehicle by a friend. She will have intake at [facility] for her methadone treatment on Thursday, and will receive her weekend doses each day this in the ED. CM discussed this with pharmacy and the ED, who are all in agreement to this plan. She will follow up with her PCP and discharge plan of care. She is happy to be going home. Patient/Family Education Needs: Review discharge instructions and limitations, discussion of self care needs including ask me three.
--- NOTE | 2021-10-11 16:41 | W.PM.DS.N ---
Date of service: 10/11/21 Time of Service: 15:41 DS: Diagnosis Discharge Diagnosis (1) DKA (diabetic ketoacidosis): Status: Resolved (2) Type 1 diabetes mellitus: Status: Acute (3) Acute opioid withdrawal: Status: Acute (4) Depression: Status: Chronic Discharge Plan Disposition Patient Disposition: HOME Condition: Improving Discharge Details Reason For Visit: Diabetic Ketoacidosis Admit Date/Time: 10/08/21 21:30 Admit Provider: Victor Manuel Barnes Attending Provider: Victor Manuel Barnes Primary Care Provider: None,None Hospital Course Hospital Course: 31 yr old type 1 DM, IVDA previously a client at [facility] who presented to the ED w/ complaints of generalized weakness, nausea, vomiting and epigastric abdominal pains. She was found to be in DKA w/ glucose of 433, AG of 25 and bicarbonate of 7. She was given iv fluids, antiemetics and analgesic and started on insulin drip and was admitted to the ICU. Her AG normalized by evening of 10/09. She was begun on basal bolus insulin therapy w lantus and novolog on 10/09 and she was monitored for another 2 day before being discharged on 10/11. She did have recurrent nausea and poor appetite and she was put on reglan for presumed diabetic gastroparesis and she was begun on paxil for depression (note she reports recent of her sister which led to her not eating and missing her appointments at [facility]). At discharge she was eating better w/out any nausea or vomting. She was given an appointment for intake at [facility] to re-establish her methadone treatments. While hospitalized she was treated w/ methadone 60 mg daily. Last dose of methadone was on 10/11. However she was set up to receive methadone over the weekend w/ appointments in the ED at [facility]. Home Meds and New Rx's Prescriptions: New insulin aspart U-100 [Novolog Flexpen U-100 Insulin] 100 unit/mL (3 mL) insulin pen 5 unit subcut AC Qty: 15 0RF Rx Instructions: 3 units w/ each meal; also follow [facility] insulin sensitive sliding to cover elevated readings insulin glargine 100 unit/mL (3 mL) insulin pen 20 unit subcut BID Qty: 15 0RF methadone [Methadone Intensol] 10 mg/mL Concentrate 60 mg PO DAILY Qty: 0 0RF metoclopramide HCl [Reglan] 10 mg tablet 10 mg PO QAC Qty: 21 0RF Rx Instructions: administer 30 minutes before meals pantoprazole 40 mg Tablet,Delayed Release (Dr/Ec) 40 mg PO DAILY@0730 Qty: 30 0RF paroxetine HCl 10 mg Tablet 10 mg PO DAILY Qty: 30 0RF trimethobenzamide 300 mg capsule 300 mg PO Q8H PRNQty: 30 0RF (DME) FreeStyle Kassi 14 Day Sensor Kit See Rx Instructions .Route Qty: 1 0RF Rx Instructions: As directed Discontinued Humulin 70/30 U-100 Insulin 100 unit/mL (70-30) Suspension 40 unit SUBCUT BID insulin aspart U-100 [Novolog U-100 Insulin aspart] 100 unit/mL Solution subcut TID Discharge Instructions Instructions: Diabetic Ketoacidosis (DC) Additional Instructions: follow up in the emergency department daily through the weekend to receive your methadone and keep your intake appointment on Thursday at [facility]. Monitor your blood sugars before meals and at bedtime and more often as needed if glucose is running over 250 or below 100. Follow the [facility] insulin sensitive scale to dose your insulin for any high readings. Take 3 units of Novolog w/ each meal. If not eating then just use the sliding scale to cover any high readings. Activity:: Activity as Tolerated Equipment/Supplies:: Test strips and Lancets Diet:: Carb Counting Discharge Orders Discharge Orders: Discharge Order (Routine); Ordered 10/11/21 Ordered By: Oni Pope Discharge Data Discharge Date/Time-TO BE ENTERED AT DEPARTURE: 10/11/21 19:00 DS: Summary Time Spent with Patient providing and/or coordinating discharge services: Greater than 30 minutes Specific discharge activities: Rx, examination, dc instructions, set follow up Status at Discharge Functional status at discharge: independent ambulation Overall status at discharge: patient is progressing back to baseline Mental Status: mental status grossly normal Speech and Movement: speech and movement normal Mood: congruent mood Affect: normal affect Exam Narrative Exam Narrative: Shayna is sitting up in bed, eating her meals. She is more alert and animated today. She is in no pain and her abdominal exam is benign w/ no tenderness w/ palpation and normal bowel sounds. Psych Mental Status: mental status grossly normal Speech and Movement: speech and movement normal Mood: congruent mood Affect: normal affect DS: Data Vitals/I&O Vitals and I&O: Vital Signs Temperature 37.2 C 10/11/21 08:00 Temperature Source Temporal Artery Scan 10/11/21 08:00 Pulse 74 10/11/21 09:15 Pulse Rhythm Regular 10/11/21 07:15 Pulse 70 10/10/21 10:01 Respiratory Rate 16 10/11/21 08:00 Respiratory Effort Non-Labored 10/11/21 07:15 Respiratory Depth Normal 10/11/21 07:15 Respiratory Pattern Normal 10/11/21 07:15 Blood Pressure 112/79 10/11/21 09:15 Blood Pressure Mean 87 10/11/21 09:15 Blood Pressure Position Supine 10/10/21 08:52 Pulse Oximetry 99 10/11/21 04:40 Oxygen Delivery Method Room Air 10/11/21 08:00 Oxygen Flow Rate 0 10/11/21 08:00 Pain Level 3 10/11/21 08:00 Comment 10/11/21 04:35 Intake & Output 10/10/21 10/11/21 10/11/21 23:59 11:59 23:59 Intake Total 225 / 2733.25 1345 / 1375 30 / 1375 Output Total 1885 / 2235 800 / 800 Balance -1660 / 498.25 545 / 575 30 / 575 Weight 46.2 kg Intake: IV 485 / 485 Oral 225 / 225 860 / 890 30 / 890 Output: Urine 1885 / 2235 250 / 250 Stool 550 / 550 Other: Urine Color Yellow Yellow Urine Appearance Clear Clear Urine Odor Normal Stool Size Small Stool Characteristics Liquid Brown Voiding Methods Bedside Commode Bedside Commode REPLACED BY [facility] All Active Problems (Updated 10/13/21 @ 10:30 by CELIO Mitchell) Methadone maintenance therapy patient (Acute) Type 1 diabetes mellitus (Acute) Depression (Chronic) History of opioid abuse (Acute) Flank pain (Acute) Bladder wall thickening (Acute) Abdominal pain (Acute) Hyperglycemia (Acute) Acute opioid withdrawal (Acute) Medical History Atrial septal defect Diabetes Hidradenitis suppurativa Kidney stones Surgical History Abscess of multiple sites history of multiple incision and drainage H/O section History of hysterectomy Social History Smoking/Tobacco Use Status: Current every day Smoking risk assessment performed?: Yes Alcohol Intake: never Drug use: Current Sobriety Details: methadone Do you feel safe at home: Yes Do you feel safe in your relationship?: Yes
== END 2021-10-11 19:00 | disposition home or self-care (01) | DRG 638 ==
LOC: ER 20:44 → ICU 10-09 03:26
PROVIDERS: Internal Medicine; Student in an Organized Health Care Education/Training Program; Admitting Provider Family Medicine; Emergency Provider Emergency Medicine; Visit Provider Family Medicine
DX: E10.10 Type 1 diabetes mellitus with ketoacidosis without coma (principal); F11.23 Opioid dependence with withdrawal; Q21.1 Atrial septal defect; J98.11 Atelectasis; R64 Cachexia; Z68.1 Body mass index [BMI] 19.9 or less, adult; F32.A Depression, unspecified; E10.43 Type 1 diabetes mellitus with diabetic autonomic (poly)neuropathy; K31.84 Gastroparesis; E86.0 Dehydration; R10.9 Unspecified abdominal pain; F17.210 Nicotine dependence, cigarettes, uncomplicated; L73.2 Hidradenitis suppurativa; K20.0 Eosinophilic esophagitis; F12.90 Cannabis use, unspecified, uncomplicated; E83.42 Hypomagnesemia; D72.829 Elevated white blood cell count, unspecified; K02.9 Dental caries, unspecified; R11.0 Nausea
CPT/HCPCS: 36410; 36415; 36416; 80048; 80053; 82805; 82962; 83690; 87635; 87637; 96361; 96365; 96375; 99285; 71045; 81003; 81015; 83735; 85025; 87086; 93005; 93010; 99223; 99232; 99239; 99291; J0131; J1650; J1815; J2405; J2765; J3475; J3480

== ENCOUNTER 2021-10-12 11:12 | Emergency (ER) | payer MEDICAID, SELFPAY ==
--- NOTE | 2021-10-12 11:17 | ED.GENADUL_ITS ---
Discharge Plan Disposition Patient Disposition: HOME Condition: Stable Discharge Details Clinical Impression: Methadone maintenance therapy patient Primary Care Provider: None,None ED Provider: Natanael Aponte Home Meds and New Rx's Prescriptions: Continued insulin aspart U-100 [Novolog Flexpen U-100 Insulin] 100 unit/mL (3 mL) insulin pen 5 unit subcut AC Qty: 15 0RF Rx Instructions: 3 units w/ each meal; also follow [facility] insulin sensitive sliding to cover elevated readings insulin glargine 100 unit/mL (3 mL) insulin pen 20 unit subcut BID Qty: 15 0RF methadone [Methadone Intensol] 10 mg/mL Concentrate 60 mg PO DAILY Qty: 0 0RF metoclopramide HCl [Reglan] 10 mg tablet 10 mg PO QAC Qty: 21 0RF Rx Instructions: administer 30 minutes before meals pantoprazole 40 mg Tablet,Delayed Release (Dr/Ec) 40 mg PO DAILY@0730 Qty: 30 0RF paroxetine HCl 10 mg Tablet 10 mg PO DAILY Qty: 30 0RF trimethobenzamide 300 mg capsule 300 mg PO Q8H PRNQty: 30 0RF (DME) FreeStyle Kassi 14 Day Sensor Kit See Rx Instructions .Route Qty: 1 0RF Rx Instructions: As directed Discharge Instructions Additional Instructions: Continue your routine medications and plans for outpatient followup Medical Decision Making 31-year-old female who was admitted to the hospital with discharge yesterday. She has plans to establish outpatient methadone treatment on Thursday. She was referred as part of her discharge plan for a daily methadone dose from the ER this weekend. She has no other complaints and was given 60 mg of methadone per previous plan HPI General Mode of arrival: ambulatory . Date/Time Provider Initiated Documentation: 10/12/21 11:17 . Limitations to Documentation: no limitations . Information obtained by: patient . History of Present Illness 31 year old F presents to the emergency department with the chief complaint of Outpatient methadone dose, outpatient care for Thursday, No relieving factors improve symptom(s), No exacerbating factors reported . Patient notes no other symptoms.. Patient did receive the following treatments prior to arrival, none Related Data Home Medications Medication Instructions Recorded Confirmed flash glucose sensor (FreeStyle #1 ea 10/11/21 Kassi 14 Day Sensor kit) insulin aspart U-100 100 unit/mL 5 unit (0.05 mL) subcut AC #15 mL 10/11/21 (3 mL) subcutaneous pen (Novolog Flexpen U-100 Insulin aspart) insulin glargine 100 unit/mL (3 20 unit (0.2 mL) subcut BID #15 mL 10/11/21 mL) subcutaneous pen methadone 10 mg/mL oral 60 mg (6 mL) PO DAILY #0 mL 10/11/21 concentrate (Methadone Intensol) metoclopramide HCl 10 mg tablet 10 mg PO QAC #21 tabs 10/11/21 (Reglan) pantoprazole 40 mg tablet,delayed 40 mg PO DAILY@0730 #30 tabs 10/11/21 release paroxetine HCl 10 mg tablet 10 mg PO DAILY #30 tabs 10/11/21 trimethobenzamide 300 mg capsule 300 mg PO Q8H PRN #30 caps 10/11/21 Previous Rx's Medication Instructions Recorded flash glucose sensor (FreeStyle #1 ea 10/11/21 Kassi 14 Day Sensor kit) insulin aspart U-100 100 unit/mL 5 unit (0.05 mL) subcut AC #15 mL 10/11/21 (3 mL) subcutaneous pen (Novolog Flexpen U-100 Insulin aspart) insulin glargine 100 unit/mL (3 20 unit (0.2 mL) subcut BID #15 mL 10/11/21 mL) subcutaneous pen methadone 10 mg/mL oral 60 mg (6 mL) PO DAILY #0 mL 10/11/21 concentrate (Methadone Intensol) metoclopramide HCl 10 mg tablet 10 mg PO QAC #21 tabs 10/11/21 (Reglan) pantoprazole 40 mg tablet,delayed 40 mg PO DAILY@0730 #30 tabs 10/11/21 release paroxetine HCl 10 mg tablet 10 mg PO DAILY #30 tabs 10/11/21 trimethobenzamide 300 mg capsule 300 mg PO Q8H PRN #30 caps 10/11/21 Allergies Allergy/AdvReac Type Severity Reaction Status Date / Time tramadol AdvReac Intermediate Diarrhea Unverified 05/01/21 17:25 Penicillins AdvReac Unverified 05/01/21 17:25 General VIELKA: 2 Review of Systems Narrative: No other complaint PFSH All Active Problems (Updated 10/12/21 @ 11:22 by Natanael Aponte MD) Methadone maintenance therapy patient (Acute) Type 1 diabetes mellitus (Acute) Depression (Chronic) History of opioid abuse (Acute) Flank pain (Acute) Bladder wall thickening (Acute) Abdominal pain (Acute) Hyperglycemia (Acute) Acute opioid withdrawal (Acute) Medical History Atrial septal defect Diabetes Hidradenitis suppurativa Kidney stones Surgical History Abscess of multiple sites history of multiple incision and drainage H/O section History of hysterectomy Social History Smoking/Tobacco Use Status: Current every day Smoking risk assessment performed?: Yes Alcohol Intake: never Drug use: Daily Substance use type: marijuana and opiates Do you feel safe at home: Yes Do you feel safe in your relationship?: Yes
[2021-10-12 11:21] VITALS: BP 105/71; PULSE 111; RESP 18; TEMP 36.2; O2SAT 97
[2021-10-12] MEDS: Methadone Liquid 10 MG/ML 60 MG PO (11:34)
== END 2021-10-12 11:37 | disposition home or self-care (01) ==
LOC: ER 11:34
PROVIDERS: Emergency Provider Emergency Medicine
DX: F11.20 Opioid dependence, uncomplicated (principal); E10.9 Type 1 diabetes mellitus without complications
CPT/HCPCS: 36416; 82962; 99283

== ENCOUNTER 2021-10-13 10:17 | Emergency (ER) | payer MEDICAID, SELFPAY ==
--- NOTE | 2021-10-13 10:19 | W.ED.GENAD ---
Discharge Plan Disposition Patient Disposition: HOME Condition: Stable Discharge Details Clinical Impression: Methadone maintenance therapy patient Primary Care Provider: None,None ED Provider: Nidhi Garza Home Meds and New Rx's Prescriptions: Continued insulin aspart U-100 [Novolog Flexpen U-100 Insulin] 100 unit/mL (3 mL) insulin pen 5 unit subcut AC Qty: 15 0RF Rx Instructions: 3 units w/ each meal; also follow [facility] insulin sensitive sliding to cover elevated readings insulin glargine 100 unit/mL (3 mL) insulin pen 20 unit subcut BID Qty: 15 0RF methadone [Methadone Intensol] 10 mg/mL Concentrate 60 mg PO DAILY Qty: 0 0RF metoclopramide HCl [Reglan] 10 mg tablet 10 mg PO QAC Qty: 21 0RF Rx Instructions: administer 30 minutes before meals pantoprazole 40 mg Tablet,Delayed Release (Dr/Ec) 40 mg PO DAILY@0730 Qty: 30 0RF paroxetine HCl 10 mg Tablet 10 mg PO DAILY Qty: 30 0RF trimethobenzamide 300 mg capsule 300 mg PO Q8H PRNQty: 30 0RF (DME) FreeStyle Kassi 14 Day Sensor Kit See Rx Instructions .Route Qty: 1 0RF Rx Instructions: As directed Discharge Instructions Additional Instructions: Follow-up with jackieida tomorrow Continue on your prescribed medications and return earlier should he have new or worsening complaints Discharge Data Discharge Date/Time-TO BE ENTERED AT DEPARTURE: 10/13/21 10:44 Medical Decision Making Patient is alert and oriented with stable vitals She is given a dose of methadone in the emergency department She will follow-up at the methadone clinic and is given discharge instructions for follow-up Medical Records Medical records reviewed: Yes I reviewed the patient's medical records. Lab Data Lab results reviewed: Yes I reviewed the patient's lab results. HPI General Date/Time Provider Initiated Documentation: 10/13/21 10:18. HPI Narrative: This 31-year-old female with history of insulin-dependent diabetes presents for her methadone dosing, 60 mg. pt was recently discharged from the hospital. She denies any additional complaints at this time. Related Data Home Medications Medication Instructions Recorded Confirmed flash glucose sensor (FreeStyle #1 ea 10/11/21 Kassi 14 Day Sensor kit) insulin aspart U-100 100 unit/mL 5 unit (0.05 mL) subcut AC #15 mL 10/11/21 10/13/21 (3 mL) subcutaneous pen (Novolog Flexpen U-100 Insulin aspart) insulin glargine 100 unit/mL (3 20 unit (0.2 mL) subcut BID #15 mL 10/11/21 10/13/21 mL) subcutaneous pen methadone 10 mg/mL oral 60 mg (6 mL) PO DAILY #0 mL 10/11/21 10/13/21 concentrate (Methadone Intensol) metoclopramide HCl 10 mg tablet 10 mg PO QAC #21 tabs 10/11/21 10/13/21 (Reglan) pantoprazole 40 mg tablet,delayed 40 mg PO DAILY@0730 #30 tabs 10/11/21 10/13/21 release paroxetine HCl 10 mg tablet 10 mg PO DAILY #30 tabs 10/11/21 10/13/21 trimethobenzamide 300 mg capsule 300 mg PO Q8H PRN #30 caps 10/11/21 10/13/21 Previous Rx's Medication Instructions Recorded flash glucose sensor (FreeStyle #1 ea 10/11/21 Kassi 14 Day Sensor kit) insulin aspart U-100 100 unit/mL 5 unit (0.05 mL) subcut AC #15 mL 10/11/21 (3 mL) subcutaneous pen (Novolog Flexpen U-100 Insulin aspart) insulin glargine 100 unit/mL (3 20 unit (0.2 mL) subcut BID #15 mL 10/11/21 mL) subcutaneous pen methadone 10 mg/mL oral 60 mg (6 mL) PO DAILY #0 mL 10/11/21 concentrate (Methadone Intensol) metoclopramide HCl 10 mg tablet 10 mg PO QAC #21 tabs 10/11/21 (Reglan) pantoprazole 40 mg tablet,delayed 40 mg PO DAILY@0730 #30 tabs 10/11/21 release paroxetine HCl 10 mg tablet 10 mg PO DAILY #30 tabs 10/11/21 trimethobenzamide 300 mg capsule 300 mg PO Q8H PRN #30 caps 10/11/21 Allergies Allergy/AdvReac Type Severity Reaction Status Date / Time tramadol AdvReac Intermediate Diarrhea Unverified 10/13/21 10:44 Penicillins AdvReac Unverified 10/13/21 10:44 General VIELKA: 5 Review of Systems Narrative: Review of systems obtained x7 and negative aside from indication in [facility] PFSH All Active Problems (Updated 10/13/21 @ 10:30 by CELIO Mitchell) Methadone maintenance therapy patient (Acute) Type 1 diabetes mellitus (Acute) Depression (Chronic) History of opioid abuse (Acute) Flank pain (Acute) Bladder wall thickening (Acute) Abdominal pain (Acute) Hyperglycemia (Acute) Acute opioid withdrawal (Acute) Medical History Atrial septal defect Diabetes Hidradenitis suppurativa Kidney stones Surgical History Abscess of multiple sites history of multiple incision and drainage H/O section History of hysterectomy Social History Smoking/Tobacco Use Status: Current every day Smoking risk assessment performed?: Yes Alcohol Intake: never Drug use: Current Sobriety Details: methadone Do you feel safe at home: Yes Do you feel safe in your relationship?: Yes Exam Const General: cooperative, comfortable and no acute distress Eyes Pupils: PERRL Resp Effort & Inspection: normal respiratory effort Cardio Rate: regular rate Neuro General: patient alert
[2021-10-13 10:21] VITALS: BP 110/80; PULSE 81; RESP 16; TEMP 36.3; O2SAT 99
[2021-10-13] MEDS: Methadone Liquid 10 MG/ML 60 MG PO (10:42)
== END 2021-10-13 10:44 | disposition home or self-care (01) ==
LOC: ER 10:43
PROVIDERS: Emergency Provider Physician Assistant
DX: F11.20 Opioid dependence, uncomplicated (principal)
CPT/HCPCS: 99283